=== PATIENT | male | born 1985 | race Caucasian/White ===

== ENCOUNTER 2022-10-04 08:12 | Emergency (ER) | payer OTHER, SELFPAY ==
[2022-10-04 08:15] VITALS: BP 117/77; PULSE 88; RESP 20; TEMP 36.7; O2SAT 95; BMI 28.3
--- NOTE | 2022-10-04 08:19 | ED.GENADULT ---
HPI - General Adult General Chief complaint: Dyspnea Stated complaint: diff breathing needs inhaler Time Seen by Provider: 10/04/22 08:19 Source: patient Mode of arrival: ambulatory Limitations: no limitations History of Present Illness HPI narrative: Patient is a 36 year old assigned male at with a history of asthma presenting to the emergency department today with increased wheezing. Patient states that he has a history of asthma and has been having more wheezing but does not have any of his inhaler left. Patient denies any dizziness, lightheadedness, abdominal pain, nausea, vomiting, fever, chills, blurry vision, double vision, loss of vision, chest pain, difficulty breathing, shortness of breath, back pain, night sweats, pain with urination, increased urinary frequency, increased urinary urgency, blood in his urine or stool, syncope or a near syncopal episode, recent trauma or falls, bowel incontinence, bladder incontinence, bowel retention, bladder retention, or any other complaints at this time. Onset (ago): day(s) Severity: mild Severity scale (1-10): 3 Relieving factors: none Exacerbating factors: none Associated symptoms: denies other symptoms Treatments prior to arrival: none Related Data Previous Rx's Medication Instructions Recorded albuterol sulfate 90 mcg/actuation 1 inh inhalation QID PRN shortness 10/04/22 aerosol inhaler of breath or wheezing #8.5 grams prednisone 20 mg tablet 20 mg PO DAILY 7 days #7 tabs 10/04/22 Allergies Allergy/AdvReac Type Severity Reaction Status Date / Time No Known Allergies Allergy Unverified 07/26/20 15:29 Review of Systems Constitutional: Constitutional: Reports no additional constitutional complaints, Denies chills, Denies fever(s) and Denies night sweats Eyes: Eyes: Reports no additional eye complaints, Denies blurry vision, Denies change in vision, Denies diplopia, Denies eye discharge, Denies loss of vision and Denies eye pain ENT: Denies dizziness Cardiovascular: Cardiovascular: Reports no additional cardiovascular complaints, Denies chest pain, Denies lightheadedness, Denies Loss of Consciousness and Denies dyspnea Respiratory: Respiratory: Reports no additional respiratory complaints, Denies dyspnea and Reports wheezing Gastrointestinal: Gastrointestinal: Reports no additional gastrointestinal complaints, Denies abdominal pain, Denies melena, Denies hematochezia, Denies change in bowel habits and Denies change in stool character Genitourinary: Genitourinary: Reports no additional male genitourinary complaints, Denies hematuria, Denies oliguria, Denies difficulty urinating, Denies dysuria, Denies urinary frequency, Denies urinary hesitancy, Denies urinary incontinence and Denies urinary urgency Musculoskeletal: Musculoskeletal: Reports no additional musculoskeletal complaints, Denies numbness and Denies tingling Neurologic: Denies dizziness, Denies loss of vision, Denies numbness and Denies tingling Psychiatric: Psychiatric: Reports no additional psychiatric complaints Endocrine: Endocrine: Reports no additional endocrine complaints Hematologic/Lymphatic: Hematologic/Lymphatic: Reports no additional hematologic/lymphatic complaints Allergic/Immunologic: Allergic/Immunologic: Reports no additional allergic/immunologic complaints and Reports wheezing PMFSH Past Medical History Attestation statement: The following information was validated with the patient. Source: old records reviewed Social History Social History Advance Directives: No Advance Directives Information Provided: No Physical Exam ED Vital Signs: Vital Signs - 24 hr 10/04/22 08:15 Temperature 98.1 F Pulse Rate 88 Respiratory Rate 20 Blood Pressure 117/77 Pulse Oximetry 95 Oxygen Delivery Method Room Air BMI result Body Mass Index 28.3 Const General: cooperative, no acute distress, alert and awake Nutritional Appearance: well nourished Orientation/consciousness: patient oriented x3 Limitations: no limitations HENMT Head: Yes normal to inspection and Yes atraumatic Ears: hearing grossly normal bilaterally and external ears normal General nose exam: Normal external nose present, no nasal discharge noted and no epistaxis Face and sinus: Yes normal facial exam, No abrasion and No laceration Mouth: Normal oral and palatal mucosa present, no drooling and no muffled voice Eyes General: appearance normal, both eyes and all related structures Periorbital: periorbital findings normal Eyelids: Yes eyelids normal Conjunctivae: conjunctivae normal Pupils: Equal, round and reactive pupils present EOM: EOMs intact bilaterally Neck Neck: Yes normal visual inspection, Yes full ROM and Yes no lymphadenopathy Chest Chest palpation & inspection: normal inspection of the chest Resp Effort & Inspection: normal respiratory effort and able to speak in complete sentences Auscultation: wheezes throughout Cardio Rate: regular rate Rhythm: regular rhythm GI Inspection: Yes normal to inspection Neuro General: patient oriented x3 and moves all extremities Cranial nerves: Yes Equal, round and reactive pupils present Cognition (Neuro): normal cognition Motor exam (neuro): 5/5 motor strength present throughout Sensory Exam: Normal double simultaneous stimulation for sensation Coordination: [id number] test normal Extrem General: Yes normal to inspection, Yes full ROM and Yes capillary refill normal Psych Appearance: grossly normal Mental Status: mental status grossly normal Affect: normal affect Attitude: cooperative Thought process: Normal thought process present Thought content: Normal thought content present Insight: Good insight present (Psych) Medications Administered Discontinued Medications Generic Name Dose Route Start Last Admin Trade Name Freq PRN Reason Stop Dose Admin Albuterol Sulfate 2.5 mg/ 0 mg 10/04/22 08:22 10/04/22 09:21 Albuterol/Ipratropium 3 ml INHALE 10/04/22 08:23 Not Given ONCE ONE Medical Decision Making MDM Narrative Medical decision making narrative: Patient is a 36 year old assigned male at with a history of asthma presenting to the emergency department today with wheezing. Patient's physical exam showed wheezes throughout but was otherwise unremarkable. I explained my physical exam findings to the patient. I answered all questions asked by the patient. I stressed the importance of the patient taking his medication as prescribed. I stressed the importance of the patient following up with his primary care provider. I stressed the importance of the patient returning to the emergency department immediately if his symptoms were to worsen or if he were to develop any dizziness, shortness of breath, difficulty breathing, chest pain, blurry vision, loss of vision, nausea, vomiting, abdominal pain, fever, chills, back pain, or any other complaints. Patient verbalized agreement and understanding with this treatment plan and discharge. Medical Records Medical records reviewed: Yes I reviewed the patient's medical records. Discharge Plan Discharge Clinical Impression: Asthma Patient Disposition: Home, Self-Care Instructions: Asthma (ED) Additional Instructions: Follow up with your primary care provider. Return to the emergency department immediately if your symptoms worsen or if you develop any dizziness, shortness of breath, difficulty breathing, chest pain, blurry vision, loss of vision, nausea, vomiting, abdominal pain, fever, chills, back pain, or any other complaints. Prescriptions: New albuterol sulfate 90 mcg/actuation HFA aerosol inhaler 1 inh inhalation QID PRN (Reason: shortness of breath or wheezing) Qty: 8.5 0RF prednisone 20 mg tablet 20 mg PO DAILY 7 Days Qty: 7 0RF Stand Alone Forms: Work/School Release Print Language: Nauruan
--- OUTSIDE RECORDS SUMMARY | 2022-10-04 08:32 | XMS_ITS ---
:1985 Author Care Team Providers Name Role Phone Win Combs Primary Care Provider Unavailable Allergies Code Code System Name Reaction Severity Status Onset NKDA ? Medications Name Status Start Date Stop Date ? ? albuterol sulfate HFA 90 mcg/actuation aerosol inhaler Active ? Not available amoxicillin 500 mg capsule Completed ? 10/26 bupropion HCl SR 100 mg tablet,12 hr sustained-release Completed ? 10/26/2018 bupropion HCl XL 300 mg 24 hr tablet, extended release Active ? Not available buspirone 10 mg tablet Completed ? 8 TAKE 1 TABLET (10MGS) BY MOUTH TWICE A DAY buspirone 5 mg tablet Completed ? 10/26/2018 dextroamphetamine-amphetamine 10 mg tablet Completed ? 06/21/2019 dextroamphetamine-amphetamine 20 mg tablet Active ? Not available Epclusa 400 mg-100 mg tablet Active ? Not available famotidine 40 mg tablet Active ? Not avai lable gabapentin 300 mg capsule Active ? Not av ailable hydroxyzine HCl 25 mg tablet Active ? Not available ibuprofen 800 mg tablet Active ? Not avai lable loperamide 2 mg capsule Active ? Not avai lable mirtazapine 30 mg tablet Active ? Not nory ilable nicotine (polacrilex) 2 mg gum Active ? N ot available CHEW 1 PIECE UP TO 10 TIMES A DAY NEEDED FOR NICOTINE AMY propranolol 10 mg tablet Active ? Not nory ilable Suboxone 8 mg-2 mg sublingual film Active ? Not available Vivitrol 380 mg intramuscular suspension,extended Active ? Not available release Problems Name Status Onset Date Source ? Opioid Dependence in Remission Active 10/26/2018 ? Chronic Hepatitis C Active 02/17/2019 ? Attention Deficit Hyperactivity Disorder Active 019 ? Procedures None recorded. Results Lab Results Date Name Specimen Result Interpretation Description Value Range Status Address ? 04/26/2019 CMP, Serum High Glucose 124 mg/dL 65-99 Zaynab l [facility] or Plasma mg/dL [facility]os [facility]- [place] Lab: [address] [place] ? ? Normal Urea 14 mg/dL 7-25 Final [facility] Nitrogen mg/dL Diagnost ics- (BUN) [place] Lab: [address] [place] ? ? Normal Creatinine 0.84 mg/dL 0.60-1.35 Final [facility] mg/dL Diagnostic s- [place] Lab: [address] [place] ? ? Normal eGFR 115 > or = 60 Final [facility] Non-afr. mL/min/1.7 mL/min/1. D iagnostics- [place] 3m2 73m2 [facility] Lab: [address] [place] [place] [place] ? ? Normal eGFR 133 > or = 60 Final [facility] [place] mL/min/1.7 mL/min/1. D iagnostics- 3m2 73m2 [facility]: [address] [place] ? ? ? BUN/creatini not 6-[address] ne Ratio applicable (calc) Diag nostics- (calc) [place] [facility]: [address] [place] ? ? Normal Sodium 141 mmol/L 135-146 Final Ques t mmol/L Diagnostic s- [place] Lab: [address] [place] ? ? Normal Potassium 4.1 mmol/L 3.5-5.3 Final Q uest mmol/L Diagnostic s- [place] Lab: [address] [place] ? ? Normal Chloride 104 mmol/L 98-[address] mmol/L Diagnostic s- [place] [facility]: [address] [place] ? ? Normal Carbon 28 mmol/L 20-32 Final [facility] Dioxide mmol/L Diagnosti cs- [place] Lab: [address] [place] ? ? Normal Calcium 9.3 mg/dL 8.6-10.[address] mg/dL Diagnostic s- [place] Lab: [address] [place] ? ? Normal Protein, 6.8 g/dL 6.1-8.1 Final Ques t Total g/dL [facility]: [address], [facility] ? ? Normal Albumin 4.3 g/dL 3.6-5.1 [facility] g/dL Diagnostic s- [facility] Lab: [address], [facility] ? ? Normal Globulin 2.5 g/dL 1.9-3.7 Final Ques t (calc) g/dL Diagnostic s- (calc) [facility]: [address] B, [facility] ? ? Normal Albumin/glob 1.7 (calc) 1.0-2.5 Final [facility] ulin Ratio (calc) Diagno stics- [facility] Lab: [address] B, [facility] ? ? Normal Bilirubin, 0.6 mg/dL 0.2-1.2 Final Q uest Total mg/dL Diagnostic s- [facility]: [address] B, [facility] [facility] ? ? Normal Alkaline 96 U/L 40-115 Final [facility] Phosphatase U/L [facility]: [address], [facility] ? ? Normal Ast 14 U/L 10-40 U/L Final [facility] Diagnostic s- [facility] Lab: [address], [facility] ? ? Normal Alt 13 U/L 9-46 U/L [facility]: [address] B, [place] 04/26/2019 Hepatitis C Normal HCV RNA, <15 not not Zaynab l [facility] Virus RNA, Quantitative detected detected Diagnostics- Quant, PCR, Real Time PCR IU/mL IU/mL [place] Serum or Lab: [address], [facility] ? ? Normal HCV RNA, <1.18 not not Final Ques t Quantitative detected detected Diagnostics- Real Time PCR log IU/mL log IU/mL [place] Lab: [address] B, [facility] 04/26/2019 Hepatitis C Normal HCV RNA, <15 not not Zaynab l [facility] Virus RNA, Quantitative detected detected Diagnostics- Quant, PCR, Real Time PCR IU/mL IU/mL [place] Serum or Lab: [address] ? ? Normal HCV RNA, <1.18 not not Final Ques t Quantitative detected detected Diagnostics- Real Time PCR log IU/mL log IU/mL [place] Lab: [address] 03/16/2019 CMP, Serum Normal Glucose 77 mg/dL 65-99 Final [facility] or Plasma mg/dL Diagnos tics- [facility] Lab: [address] ? ? Normal Urea 12 mg/dL 7-25 Final [facility] Nitrogen mg/dL Diagnost ics- (BUN) [facility] Lab: [address] ? ? Normal Creatinine 1.05 mg/dL 0.60-1.35 Final [facility] mg/dL Diagnostic [facility] Lab: [address] ? ? Normal eGFR 93 > or = 60 Final [facility] Non-afr. mL/min/1.7 mL/min/1. D iagnostics- [place] 3m2 73m2 [facility] Lab: [address] ? ? Normal eGFR 108 > or = 60 Final [facility] [place] mL/min/1.7 mL/min/1. D iagnostics- 3m2 73m2 [facility] Lab: [address] ? ? ? BUN/creatini not 6-[address] ne Ratio applicable (calc) Diag nostics- (calc) [facility] Lab: [address] ? ? Normal Sodium 139 mmol/L 135-146 Final Ques t mmol/L Diagnostic [facility] Lab: [address] ? ? Normal Potassium 4.5 mmol/L 3.5-5.3 Final Q uest mmol/L Diagnostic [facility] Lab: [address] [place] ? ? Normal Chloride 102 mmol/L 98-[address] mmol/L Diagnostic s- [place] [facility]: [address] [place] ? ? Normal Carbon 28 mmol/L 20-32 Final [facility] Dioxide mmol/L Diagnosti cs- [place] Lab: [address] [place], [place] ? ? Normal Calcium 9.7 mg/dL 8.6-10.[address] mg/dL Diagnostic s- [place] Lab: [address] [place], [facility] ? ? Normal Protein, 7.6 g/dL 6.1-8.1 Final Ques t Total g/dL Diagnostic [facility]- [facility] Lab: [address] [place], [facility] ? ? Normal Albumin 5.0 g/dL 3.6-5.1 Final [facility] g/dL Diagnostic s- [facility] [address] [place], [facility] ? ? Normal Globulin 2.6 g/dL 1.9-3.7 Final Ques t (calc) g/dL Diagnostic s- (calc) [facility]: [address] B, [facility] ? ? Normal Albumin/glob 1.9 (calc) 1.0-2.5 Final [facility] ulin Ratio (calc) Diagno stics- [facility] Lab: [address] [place], [place] ? ? Normal Bilirubin, 0.7 mg/dL 0.2-1.2 Final Q uest Total mg/dL Diagnostic s- [place] [facility]: [address] [place] ? ? Normal Alkaline 113 U/L 40-115 Final [facility] Phosphatase U/L Diagn ostics- [facility]: [address] [place] ? ? Normal Ast 27 U/L 10-40 U/L [facility] Diagnostic s- [place] Lab: [address] [place] ? ? High Alt 51 U/L 9-46 U/L [facility] Diagnostic s- [place] Lab: [address] [place] 03/16/2019 Hepatitis C ? Hepatitis C 3 ? Fi nal [facility] Genotype, Viral RNA Diag nostics- Serum or Genotype, [place] Plasma lipa(R) Lab: [address] [place], [place] 03/16/2019 Liver ? Fibrosis 0.19 ? Final Que st Fibrosis, Score Diagnos tics- Fibrotest [facility] Lab: [address] [place], [place] ? ? ? Fibrosis F0 ? Final [facility] Stage Diagnostic s- [place] Lab: [address] [place] ? ? ? Fibrosis see note ? Final [facility] Interpretatio [facility]- n [place] Lab: [address] [place] ? ? ? Necroinflamm 0.28 ? Final Que [facility] at Act Score Diag nostics- [place] Lab: [address] [place] ? ? ? Necroinflamm A0-A1 ? Final Que st at Act Grade Diag nostics- [place] Lab: [address] [place], [place] ? ? ? Necroinflamm see note ? Final Q uest at Interp Diagnos tics- [place] Lab: [address] [place] ? ? ? Alpha 2 207 mg/dL 106-279 Final Ques t Macroglobulin mg/dL [facility] [place] Lab: [address] [place] ? ? ? Haptoglobin 126 mg/dL 43-212 Final Q uest mg/dL Diagnostic s- [place] Lab: [address] [place] ? ? ? Apolipoprote 134 mg/dL 94-176 Final [facility] in a1 mg/dL Diagnostic s- [place] Lab: [address] [place] ? ? ? Total 0.5 mg/dL 0.2-1.2 Final [facility] Bilirubin mg/dL Diagnos [facility]ics- [place] Lab: [address] [place] ? ? ? Ggt 33 U/L 3-90 U/L Final [facility] Diagnostic s- [place] Lab: [address] [place] ? ? High Alt 53 U/L 9-46 U/L [facility] Diagnostic s- [place] Lab: [address] [place] ? ? ? Reference Id [id number] ? Final Qu est Diagnostic s- [place] Lab: [address] [place] ? ? ? Footnote see note ? Final [facility] Diagnostic s- [place] Lab: [address] [place] 03/16/2019 CBC W/ Auto Normal White Blood 7.8 3.8-10.8 Final [facility] Diff Cell Count thousand/u thousand/ Diagnostics- L uL [place] Lab: [address] [place] ? ? High Red Blood 5.90 4.20-5.80 Final [facility] st Cell Count million/uL million/u Diagnostics- L [place] Lab: [address] [place] ? ? High Hemoglobin 18.3 g/dL 13.2-17.1 Final [facility] g/dL Diagnostic s- [place] Lab: [address] [place] ? ? High Hematocrit 54.7 % 38.5-50.0 Final Qu est % Diagnostic s- [place] Lab: [address] [place] ? ? Normal Mcv 92.7 fL 80.0-100. Final [facility] 0 fL Diagnostic s- [place] Lab: [address] [place] ? ? Normal Mch 31.0 pg 27.0-33.0 Final [facility] pg Diagnostic s- [place] Lab: [address] [place] ? ? Normal Mchc 33.5 g/dL 32.0-36.0 Final Ques t g/dL Diagnostic s- [place] Lab: [address] [place] ? ? Normal Rdw 12.4 % 11.0-15.0 Final [facility] % Diagnostic s- [place] Lab: [address] [place] ? ? Normal Platelet 252 140-400 Final [facility] Count thousand/u thousand/ [facility]- L uL [place] Lab: [address] [place] ? ? Normal Mpv 10.6 fL 7.5-12.5 Final [facility] fL Diagnostic s- [place] Lab: [address] [place] ? ? Normal Absolute [id number] Final Ques t Neutrophils cells/uL cells/uL D iagnostics- [place] Lab: [address] [place] ? ? Normal Absolute [id number] Final [facility] Lymphocytes cells/uL cells/uL D iagnostics- [place] [facility]: [address] [place] ? ? Normal Absolute 632 200-950 Final [facility] Monocytes cells/uL cells/uL [facility] [place] Lab: [address] [place] ? ? Normal Absolute 117 15-500 Final [facility] Eosinophils cells/uL cells/uL D iagnostics- [place] Lab: [address] [place] ? ? Normal Absolute 47 0-200 Final [facility] Basophils cells/uL cells/uL [facility] [place] [facility]: [address] [place] ? ? Normal Neutrophils 59.3 % ? Final Ques t Diagnostic s- [place] Lab: [address] [place], [place] ? ? Normal Lymphocytes 30.5 % ? Final Ques t Diagnostic s- [place] [facility]: [address] [place] ? ? Normal Monocytes 8.1 % ? Final [facility] Diagnostic s- [place] [facility]: [address] [place] ? ? Normal Eosinophils 1.5 % ? Final Ques t Diagnostic s- [place] Lab: [address] [place], [place] ? ? Normal Basophils 0.6 % ? Final [facility]: [address] B, [place] 03/16/2019 PT/INR Normal Inr 1.0 ? Final [facility] Lab: [address] B, [place] ? ? Normal Pt 10.8 sec 9.0-11.5 Final [facility] sec Diagnostic [facility]: [address] B, [place] 03/16/2019 HBsAg Normal Hepatitis B non-reacti non-react Final [facility] (Hepatitis B Surface ve cassy [facility]- Surface Ag), Antigen [facility] Serum Lab: [address], [facility] 03/16/2019 Hepatitis B Normal Hepatitis B non-reacti non-r eact Final [facility] Core Ab, Core Ab Total ve cassy D iagnostics- Total, Serum [facility] Lab: [address], [facility] 03/16/2019 Hepatitis a Normal Hepatitis a non-reacti non-r eact Final [facility] Ab, Total, Ab, Total ve cassy [facility]- Serum [facility] Lab: [address], [facility] 03/16/2019 Hepatitis B Normal Hepatitis B 101 mIU/mL > or = 10 Final [facility] Surface Ab, Surface Ab mIU/mL D iagnostics- Quantitative Immunity, Qn [place] , Serum Lab: [address], [facility] 03/16/2019 HIV 1+2 Ab + Normal HIV Ag/Ab, non-reacti non-r eact Final [facility] HIV1 P24 Ag, 4TH Gen ve cassy [facility]- Quantitative [facility] Immunoassay, Lab: [address], [facility] 03/16/2019 Afp Normal Alpha 3.3 NG/mL <6.[address] (Alpha-fetop Fetoprotein, NG/mL Diagnostics- [facility]) Tumor Marker [facility] Tumor Lab: [address] [place], [address] Serum or [facility] B , Plasma [facility] 02/16/2019 Hepatitis C High HCV RNA, 1170 IU/mL not F inal [facility] Virus RNA, Quantitative detected Diagnostics- Quant, PCR, Real Time PCR IU/mL [place] Serum or Lab: [address] ? ? High HCV RNA, 3.07 log not Final [facility] Quantitative IU/mL detected Di agnostics- Real Time PCR log IU/mL [place] Lab: [address] 10/26/2018 Lipid Panel, Normal Cholesterol, 144 mg/dL <200 Final [facility] Serum Total mg/dL Diagnostic s- [facility] Lab: [address] ? ? Low HDL 24 mg/dL >40 mg/dL Final [facility] Cholesterol Diagn ostics- [facility] Lab: [address] ? ? High Triglyceride 243 mg/dL <150 Final [facility] s mg/dL [facility]: [address] ? ? Normal LDL-choleste 86 mg/dL ? Final Q uest rol (calc) Diagnostic [facility] Lab: [address] ? ? High Chol/hdlc 6.0 (calc) <5.0 Final Qu est Ratio (calc) Diagnostic [facility] Lab: [address] ? ? Normal Non HDL 120 mg/dL <130 Final [facility] Cholesterol (calc) mg/dL Diagn ostics- (calc) [facility] Lab: [address] 10/26/2018 CMP, Serum High Glucose 125 mg/dL 65-99 Zaynab l [facility] or Plasma mg/dL Diagnos tics- [facility] Lab: [address] ? ? Normal Urea 15 mg/dL 7-25 Final [facility] Nitrogen mg/dL Diagnost ics- (BUN) [facility] Lab: [address] ? ? Normal Creatinine 1.12 mg/dL 0.60-1.35 Final [facility] mg/dL Diagnostic s- [place] [facility]: [address] [place] ? ? Normal eGFR 86 > or = 60 Final [facility] Non-afr. mL/min/1.7 mL/min/1. D iagnostics- [place] 3m2 73m2 [facility] Lab: [address] [place] ? ? Normal eGFR 99 > or = 60 Final [facility] [place] mL/min/1.7 mL/min/1. D iagnostics- 3m2 73m2 [place] Lab: [address] [place] ? ? ? BUN/creatini not 6-[address] ne Ratio applicable (calc) Diag nostics- (calc) [place] [facility]: [address] [place] ? ? Normal Sodium 140 mmol/L 135-146 Final Ques t mmol/L Diagnostic s- [place] Lab: [address] [place], [place] ? ? Normal Potassium 4.1 mmol/L 3.5-5.3 Final Q uest mmol/L Diagnostic s- [place] Lab: [address] [place] ? ? Normal Chloride 104 mmol/L 98-[address] mmol/L Diagnostic s- [place] Lab: [address] [place] ? ? Normal Carbon 26 mmol/L 20-32 Final [facility] Dioxide mmol/L Diagnosti cs- [place] Lab: [address] [place] ? ? Normal Calcium 8.9 mg/dL 8.6-10.[address] mg/dL Diagnostic s- [place] Lab: [address] [place], [place] ? ? Normal Protein, 6.6 g/dL 6.1-8.1 Final Ques t Total g/dL Diagnostic s- [place] Lab: [address] [place], [place] ? ? Normal Albumin 4.5 g/dL 3.6-5.1 [facility] g/dL Diagnostic s- [place] Lab: [address], [facility] ? ? Normal Globulin 2.1 g/dL 1.9-3.7 Final Ques t (calc) g/dL Diagnostic s- (calc) [facility] Lab: [address] B, [facility] ? ? Normal Albumin/glob 2.1 (calc) 1.0-2.5 Final [facility] ulin [facility] (calc) [facility] Lab: [address] B, [facility] h ? ? Normal Bilirubin, 0.8 mg/dL 0.2-1.2 Final Q uest Total mg/dL Diagnostic s- [facility] Lab: [address], [facility] h ? ? Normal Alkaline 111 U/L 40-115 Final [facility] Phosphatase U/L Diagn [facility] h Lab: [address], [facility] h ? ? Normal Ast 28 U/L 10-40 U/L Final [facility]: [address], [facility] ? ? High Alt 72 U/L 9-46 U/L Final [facility] Diagnostic [facility] h Lab: [address], [facility] 10/26/2018 Hepatitis C ABNORMAL Hepatitis C reactive non-r eact Final [facility] Virus Ab, Antibody cassy Diagn [facility] Lab: [address], [facility] h ? ? High Signal to 11.70 <1.00 Final [facility] Cut-off [facility]osti [facility] Lab: [address], [facility] h ? ? High HCV RNA, 27 IU/mL not Final [facility] Quantitative detected Di agnostics- Real Time PCR IU/mL [facility] Lab: [address], [facility] h ? ? High HCV RNA, 1.43 log not Final [facility] Quantitative IU/mL detected Di agnostics- Real Time PCR log IU/mL [place] Lab: [address], [place] ? ? ? Comment ? ? Final [facility] Diagnostic s- [place] Lab: [address] [place], [place] 10/26/2018 Buprenorphin Normal Buprenorphin negative <2 NG /mL Final [facility] e, e NG/mL Diagnostic s- Quantitative [place] [facility] Lab: 200 , Urine [address], [place] ? ? Normal Medmatch consistent ? Final Que st Buprenorphine [facility] [place] Lab: [address] [place], [place] ? ? Normal Norbuprenorp negative <2 NG/mL Final [facility] georges NG/mL Diagnostic s- [place] Lab: [address] B, [facility] ? ? Normal Medmatch consistent ? Final Que st Norbuprenorph [facility]- ine [place] Lab: [address], [facility] ? ? ? Comment ? ? Final [facility] Diagnostic s- [place] Lab: [address] B, [place] 10/26/2018 Drug Screen, Normal Creatinine 204.5 > or = Fi nal [facility] Urine mg/dL 20.0 Diagnostic s- mg/dL [place] Lab: [address] B, [facility] ? ? Normal Ph 8.0 4.5-9.0 Final [facility] Diagnostic s- [place] Lab: [address] B, [place] ? ? Normal Oxidant negative <200 Final [facility] mcg/mL mcg/mL Diagnostic s- [place] Lab: [address] [place], [place] ? ? Normal Amphetamines negative <500 Final Q uest NG/mL NG/mL Diagnostic s- [place] Lab: [address] B, [place] ? ? Normal Medmatch consistent ? Final Que st Amphetamines Diag nostics- [place] Lab: [address] [place], [place] ? ? Normal Barbiturates negative <300 Final Q uest NG/mL NG/mL Diagnostic s- [place] Lab: [address] [place], [place] ? ? Normal Medmatch consistent ? Final Que st Barbiturates Diag nostics- [facility] Lab: [address] [place], [facility] ? ? Normal Benzodiazepi negative <100 Final Q uest naomi NG/mL NG/mL Diagnostic s- [place] Lab: [address] [place], [facility] ? ? Normal Medmatch consistent ? Final Que st Benzodiazepin [facility]- es [facility] Lab: [address] [place], [facility] ? ? Normal Marijuana negative <20 NG/mL Final Q uest Metabolite NG/mL Diagno [facility]- [facility] Lab: [address] [place], [facility] ? ? Normal Medmatch consistent ? Final Que st Marijuana Diagnos tics- Metab [facility] Lab: [address] [place], [facility] h ? ? Normal Cocaine negative <150 Final [facility] Metabolite NG/mL NG/mL Diagno [facility]- [facility] Lab: [address] [place], [facility] ? ? Normal Medmatch consistent ? Final Que st Cocaine Metab [facility]- [facility] Lab: [address], [facility] h ? ? Normal Methadone negative <100 Final Ques t Metabolite NG/mL NG/mL Diagno [facility]- [facility] Lab: [address] [place], [facility] ? ? Normal Medmatch consistent ? Final Que st Methadone Diagnos tics- [facility] Lab: [address] [place], [facility] ? ? Normal Opiates negative <100 Final [facility] NG/mL NG/mL Diagnostic s- [place] Lab: [address], [facility] ? ? Normal Medmatch consistent ? Final Que st Opiates Diagnosti cs- [place] Lab: [address] [place], [facility] ? ? Normal Oxycodone negative <100 Final Ques t NG/mL NG/mL Diagnostic s- [place] Lab: [address] [place], [place] ? ? Normal Medmatch consistent ? Final [facility]- [place] [facility]: [address], [facility] ? ? ? Comment ? ? [facility] [place] [facility]: [address], [facility] ? ? Normal Alcohol negative <500 Final [facility] Metabolites NG/mL NG/mL [facility]: [address] [place], [place] ? ? Normal Medmatch consistent ? Final Que st [facility] Metab [facility]: [address], [facility] ? ? ? Comment ? ? [facility] [place] [facility]: [address], [facility] ? ? Normal 6 negative <10 NG/mL [facility] Acetylmorphin NG/mL [facility]: [address], [facility] ? ? Normal Medmatch 6 consistent ? Final Q uest Acetylmorphin [facility]- [facility]: [address], [facility] ? ? ? Comment ? ? [facility] [place] [facility]: [address] [place], [place] 10/26/2018 Drug Normal Fentanyl negative <0.5 Final Q uest Monitor, NG/mL NG/mL [facility]ost [facility]- [place], [place]conf, Lab: [address], [facility] ? ? ? Comment ? ? [facility] [place] [facility]: [address], [facility] Past Encounters None recorded. Social History Tobacco Smoking Status Current Every Day Smoker Notes: 5 d aily Vaccine List Vaccine Type Hep A, adult 03/29/2019?0.5 mL Plan of Care Reminders Provider Appointments None recorded. ? ? Lab None recorded. ? ? Referral None recorded. ? ? Procedures None recorded. ? ? Surgeries None recorded. ? ? Imaging None recorded. ? ? Vitals 02/16/2019 02:15PM Do Not Use Medical Height Weight BMI Blood Pressure 5 ft 5.5 in 183 lbs 2 oz 30 kg/m2 117/78 mm[Hg] 11/16/2018 03:00PM Physical Exam Height Weight BMI Blood Pressure 5 ft 5.5 in 189 lbs 2 oz 31 kg/m2 128/80 mm[Hg] 10/26/2018 02:15PM New Patient Height Weight BMI Blood Pressure 5 ft 5.5 in 184 lbs 4 oz 30.2 kg/m2 115/80 mm[Hg]
== END 2022-10-04 09:15 | disposition home or self-care (01) ==
PROVIDERS: Emergency Provider Emergency Medicine; PCP Internal Medicine
DX: J45.909 Unspecified asthma, uncomplicated (principal)
CPT/HCPCS: 99281; 99283

== ENCOUNTER 2023-05-27 22:53 | Emergency (ER) | payer OTHER, SELFPAY ==
[2023-05-27 22:57] VITALS: BP 110/67; PULSE 101; RESP 18; TEMP 36.3; O2SAT 96; BMI 28.3
[2023-05-28 00:45] VITALS: BP 106/67; PULSE 82; RESP 17; TEMP 36.6; O2SAT 94
--- NOTE | 2023-05-28 01:24 | PC.NURSE ---
patient is in bed being seen by the doctor patient vitals were stable at this time patent showing no distress patient family is at the bedside patient will continue to be monitored for safety.
--- NOTE | 2023-05-28 01:27 | ED.EXTPRO ---
HPI - Extremity Problem General Chief complaint: Extremity Problem Stated complaint: R arm infection Time Seen by Provider: 05/28/23 01:16 Source: patient Mode of arrival: ambulatory Limitations: no limitations History of Present Illness HPI Narrative: Patient comes to the emergency room complaining of right forearm abscess/cellulitis. Patient states it started approximately 24 hours ago. Patient admits to IV drug use. Complaining of subjective fever and chills. Related Data Previous Rx's Medication Instructions Recorded albuterol sulfate 90 mcg/actuation 1 inh inhalation QID PRN shortness 10/04/22 aerosol inhaler of breath or wheezing #8.5 grams prednisone 20 mg tablet 20 mg PO DAILY 7 days #7 tabs 10/04/22 cephalexin 500 mg capsule 500 mg PO BID #14 caps 05/28/23 doxycycline hyclate 100 mg capsule 100 mg PO BID #14 caps 05/28/23 Allergies Allergy/AdvReac Type Severity Reaction Status Date / Time No Known Allergies Allergy Unverified 07/26/20 15:29 Review of Systems Review of Systems: Constitutional : No Weight loss, No Fever, No Chills, No Night Sweats, No Fatigue, No Malaise ENT/Mouth : No Hearing loss, No Ear Pain, No Nasal Congestion, No Sinus Pain, No Hoarseness, No sore throat, No Rhinorrhea, No Swallowing Difficulty Eyes: No Eye Pain, No Swelling, No Redness, No Foreign Body, No Discharge, No Vision Changes Cardiovascular : No Chest Pain, No SOB, No Dyspnea on Exertion, No Orthopnea, No Edema, No Palpitations Respiratory : No Cough, No Sputum, No Wheezing, No Smoke Exposure, No Dyspnea Gastrointestinal : No Nausea, No Vomiting, No Diarrhea, No Constipation, No abdominal Pain, No Hematochezia, No Melena Genitourinary : no irregular bleeding, No Dysuria, No Urinary Frequency, No Hematuria, No Urinary Incontinence, No Urgency, No Flank Pain, No Urinary Flow Changes, No Hesitancy Musculoskeletal : No joint pain, No Myalgias, No Joint Swelling Skin : Complaining of heavy lightest an abscess in the right forearm Neuro : No Weakness, No Numbness, No Paresthesias, No Loss of Consciousness, No Dizziness, No Headache Psych : No Anxiety/Panic, No Depression, No SI/HI/AH/VH, No Social Issues, Heme/Lymph: No Bruising, No Bleeding,No Lymphadenopathy Endocrine : No Polyuria, No Polydipsia, No Temperature Intolerance [facility] Past Medical History Medical History IV drug user Social History Social History Alcohol intake: never Smoked in Last 30 Days: No Advance Directives: No Advance Directives Information Provided: Yes Physical Exam Vital Signs: Vital Signs: Last Vital Signs Temp 97.8 F 05/28/23 00:45 Pulse 82 05/28/23 00:45 Resp 17 05/28/23 00:45 BP 106/67 05/28/23 00:45 Pulse Ox 94 05/28/23 00:45 O2 Del Method Room Air 05/28/23 00:45 BMI result Body Mass Index 28.3 Const: Other: Appearance: Alert. Oriented X3. No acute distress. Eyes: Pupils equal, round and reactive to light. ENT: Pharynx normal. Neck: Normal inspection. Neck supple. No lymph nodes noted. No crepitus CVS: Normal heart rate and rhythm. Pulses normal. Normal S1 and S2 Respiratory: No respiratory distress. Breath sounds normal. No Wheezing. No rales Abdomen: Soft and nontender. No rigidity. No distention. Skin: Skin warm and dry. See extremity below Extremities: No lower extremity edema. No Lacerations. No Rash. The right 1 is erythematous left forearm, on bedside ultrasound, there is a 2 cm abscess approximately 0.5 cm below the skin. The surrounding skin approximately a cm radius is erythematous. Neuro: Oriented X 3. No motor deficit. No sensory deficit. Moving all extremities. No slurred speech. CN 2 through 12 grossly intact Psych: calm, cooperative, normal affect Course Course Course Narrative: -I discussed the physical exam with the patient, the abscess needs to be drained and packed -patient will need antibiotics, patient reports no allergies -labs pending Medical Decision Making Medical Decision Making MDM Narrative: -patient's arm was drained, packed with iodoform. Tolerated well the procedure -white blood cell count is elevated 14.5, lactic acid normal, not tachycardic, heart rate 82, no fever. Admission was considered and offered to the patient. Patient would like to be discharged home but agrees that if the erythema or swelling worsens, any new symptoms, fever chill, he will return to the emergency room. Patient is aware he will need to return in 48 hours for a wound check and packing removal. -patient was given the 1st dose of antibiotics, Keflex and doxycycline -patient's sodium is a bit low, 131. However, patient is completely asymptomatic. -patient given p.o. oxycodone Differential Diagnosis Differential Diagnoses: The differential diagnosis associated with the presentation includes (Cellulitis, abscess) Admission/Observation Consideration of admission/observation: Escalation of care including admission/observation considered Lab Data MDM Lab Attestation statement: I reviewed the patient's lab results. 05/28/23 01:48 05/28/23 01:48 Procedures Abscess I/D Site: upper extremity Side (if applicable): right Local Anesthetic: lidocaine 1% Amount of anesthesia used (mL): 10 Technique: incised with blade and ultrasound guided Amount of fluid expressed (mL): 20 Sent for culture/gram staining?: No Irrigation: Yes Packing used?: iodoform Critical Care Time Critical Care Time Critical Care Time: Yes Total Critical Care Time: 45 Attestation: I have personally provided critical care time. Time includes review of lab data, radiology results, discussion with consultants, and monitoring for potential decompensation. Intervention performed as documented. Discharge Plan Discharge Clinical Impression: Abscess, Cellulitis Patient Disposition: Home, Self-Care Instructions: Abscess (ED) Additional Instructions: You need to return in 48 hours for wound check and packing removal. If you develop over the next 48 hours fever, chills, worsening symptoms or new symptoms, please return to the emergency room. Please follow-up with your primary care physician tomorrow. If you have any worsening or new symptoms, please return to the emergency room or call 911 Prescriptions: New doxycycline hyclate 100 mg capsule 100 mg PO BID Qty: 14 0RF cephalexin 500 mg capsule 500 mg PO BID Qty: 14 0RF No Action albuterol sulfate 90 mcg/actuation HFA aerosol inhaler 1 inh inhalation QID PRN (Reason: shortness of breath or wheezing) Qty: 8.5 0RF prednisone 20 mg tablet 20 mg PO DAILY 7 Days Qty: 7 0RF
[2023-05-28 01:56] LABS: Basophils Percent Auto 0.2 % (0-2); Hematocrit 39.3 % (42.0-52.0); Mean Platelet Volume 10.6 fL (9.4-12.4); PLT CLUMP 1; SCAN SMEAR FLAG 1
[2023-05-28 01:58] LABS: Hemoglobin 13.6 g/dl (14.0-18.0); Imm Gran Abs Auto 0.05 X10*3/uL (0.00-0.03); Imm Gran Pct Auto 0.3 % (0.0-0.4); Lymphocytes Absolute Auto 1.3 X10*3/uL (1.2-4.9); Lymphocytes Percent Auto 9.2 % (20-40); MANUAL DIFF FLAG SCAN; Mean Corpuscular HGB Conc 34.6 g/dl (31.0-36.0); Mean Corpuscular Volume 83.8 fL (80.0-98.0); Monocytes Absolute Auto 1.1 X10*3/uL (0.1-1.2); Monocytes Percent Auto 7.5 % (2-11); Neutrophils Percent Auto 82.8 % (45-73); Red Blood Count 4.69 X10*6/uL (4.60-5.80)
[2023-05-28 02:05] LABS: Lactic Acid 0.9 mmol/L (0.5-2.0)
[2023-05-28] MEDS: oxyCODONE HCl Immed Release 5 MG TABLET PO (02:06)
--- NOTE | 2023-05-28 02:06 | PC.NURSE ---
patient in bed with eyes open patient was medicated with no issues patient family at the bed side while doctor perform the procedure on the infected right arm
[2023-05-28 02:08] LABS: Anion Gap 12 (12-20); Blood Urea Nitrogen 20 mg/dL (9-16); Calcium 9.1 mg/dL (8.4-10.2); Carbon Dioxide 23 mmol/L (22-29); Chloride 100 mmol/L (96-108); Creatinine Clr Calc Pharmacy 115.3; Estimated Glomerular Filt Rate > 60; Glucose Random 157 mg/dL (60-115); Potassium 4.1 mmol/L (3.3-5.1); Sodium 131 mmol/L (135-145)
[2023-05-28 02:14] LABS: White Blood Count 14.5 X10*3/uL (4.8-10.8)
[2023-05-28 02:15] LABS: SLIDE REVIEW VERIFIED
[2023-05-28] MEDS: cephALEXin 500 MG CAPSULE PO (02:35)
[2023-05-28] MEDS: Doxycycline Monohydrate 100 MG CAPSULE PO (02:35)
== END 2023-05-28 02:44 | disposition home or self-care (01) ==
PROVIDERS: Emergency Provider Emergency Medicine; PCP Internal Medicine
DX: L02.413 Cutaneous abscess of right upper limb (principal); L03.113 Cellulitis of right upper limb; F19.90 Other psychoactive substance use, unspecified, uncomplicated; F17.210 Nicotine dependence, cigarettes, uncomplicated
CPT/HCPCS: 10060; 36415; 80048; 83605; 85025; 87040; 99284

== ENCOUNTER 2023-05-29 17:36 | Inpatient (IN) | payer OTHER, SELFPAY ==
--- NOTE | ~2023-05-29 | CT_ITS ---
EXAMINATION: CT FOREARM WITH CONTRAST, RIGHT CLINICAL INFORMATION: Evaluate for persistent abscess COMPARISON: None available. TECHNIQUE: 85 mL Omnipaque 350 intravenous contrast was utilized. Multidetector helical imaging was performed through the right forearm. Coronal and sagittal reformatted images were created. This CT examination was performed using dose optimization techniques as appropriate, variously including the following: *Automated exposure control *Adjustment of mA and/or kV according to patient size (this includes techniques or standardized protocols for targeted exams where dose is matched to indication/reason for exam; i.e. extremities or head) *Use of iterative reconstruction technique DLP: 157 mGy-cm FINDINGS: There is a intramuscular collection in the dorsal proximal to mid forearm measuring approximately 5.7 cm in length and 1.4 x 0.7 cm in cross-sectional dimension. An additional, smaller fluid collection is present in the dorsal mid to distal forearm musculature measuring 2.9 cm in length and 0.9 x 0.4 cm in cross-sectional dimension, containing trace gas. There is additional fluid and foci of gas along the dorsal musculature of the distal forearm without definite collection at this location. There is subcutaneous edema along the length of the forearm dorsally as well as at the elbow. Vasculature appears normally enhancing. No focal osseous abnormality is seen. Articular alignment appears anatomic. CT/CT forearm RT w IV con IMPRESSION: 1. Two fluid collections in the dorsal forearm musculature as described above, one of which contains trace gas. Appearance is consistent with abscesses. 2. Additional fluid and foci of gas along the dorsal musculature of the distal forearm without definite collection at this location. 3. Subcutaneous edema along the length of the forearm dorsally as well as at the elbow.
[2023-05-29 18:41] VITALS: BP 116/70; PULSE 61; RESP 16; TEMP 36.3; O2SAT 99; BMI 28.3
--- NOTE | 2023-05-29 18:41 | ED.GENADULT ---
HPI - General Adult General Chief complaint: Wound/Laceration Stated complaint: Dressing needs to be removed Time Seen by Provider: 05/29/23 22:24 Source: patient, RN notes reviewed and old records reviewed Mode of arrival: ambulatory Limitations: no limitations History of Present Illness HPI narrative: 37-year-old male presents for evaluation of ?packing removal. Patient was seen here just under 48 hours ago for an abscess to his right forearm. He admits to IV drug abuse which is the source of the abscess. 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 He was discharged with doxycycline and cephalexin after being offered admission She continues to have pain and now the redness is extending up his right upper arm Denies any fevers or chills Related Data Previous Rx's Medication Instructions Recorded albuterol sulfate 90 mcg/actuation 1 inh inhalation QID PRN shortness 10/04/22 aerosol inhaler of breath or wheezing #8.5 grams prednisone 20 mg tablet 20 mg PO DAILY 7 days #7 tabs 10/04/22 cephalexin 500 mg capsule 500 mg PO BID #14 caps 05/28/23 doxycycline hyclate 100 mg capsule 100 mg PO BID #14 caps 05/28/23 ibuprofen 600 mg tablet 600 mg PO TID PRN fever or pain 05/28/23 #20 tabs oxycodone 5 mg tablet 5 mg PO Q8H PRN pain #6 tabs 05/28/23 Allergies Allergy/AdvReac Type Severity Reaction Status Date / Time No Known Allergies Allergy Verified 05/29/23 18:43 Review of Systems Constitutional: Constitutional: Denies chills and Denies fever(s) Musculoskeletal: Comments: Right forearm pain and swelling Integumentary/Breasts: Skin/Breast: Reports erythema and Reports wounds PMFSH Past Medical History Medical History IV drug user Social History Social History Alcohol intake: never Advance Directives: No Advance Directives Information Provided: No Physical Exam ED Vital Signs: Vital Signs - 24 hr 05/29/23 18:41 05/29/23 20:12 05/29/23 22:58 Temperature 97.4 F 98.1 F 99.2 F Pulse Rate 61 66 77 Respiratory Rate 16 16 16 Blood Pressure 116/70 118/72 133/75 Pulse Oximetry 99 99 98 Oxygen Delivery Method Room Air Room Air Room Air BMI result Body Mass Index 28.3 Const General: comfortable, no acute distress, alert and awake Nutritional Appearance: well nourished Orientation/consciousness: patient oriented x3 HENMT Head: Yes normocephalic and Yes atraumatic Eyes Eyelids: Yes eyelids normal Conjunctivae: conjunctivae normal Sclerae: sclerae normal Corneas: corneas normal Pupils: Equal, round and reactive pupils present EOM: EOMs intact bilaterally Neck Neck: Yes full ROM Resp Effort & Inspection: normal respiratory effort, able to speak in complete sentences and not labored Cardio Rate: regular rate Rhythm: regular rhythm Skin Other: Patient has a previously incised abscess to the right distal forearm on the dorsal surface. There is iodoform packing still in the wound. Packing was removed and there is a significant amount of yellowish purulent drainage from the wound. The patient still has fluctuance extending proximally up the arm with erythema extending group home up the right upper arm. General skin exam: elasticity normal Neuro General: patient oriented x3 Cranial nerves: Yes CN's II-XII intact bilaterally, Yes Equal, round and reactive pupils present and Yes Bilaterally intact EOM present Cognition (Neuro): normal cognition Extrem Other: Patient has good range of motion with flexion, extension, pronation supination of the right forearm. Course Course Course Narrative: RME performed by Kamille Dobbs PA-C. Patient is a 37 year old assigned male at presenting to the emergency department requesting packing removal. Patient was seen early in the morning on 05/28/2023 and had an abscess incised / drained with packing placed. Patient placed back in the waiting room pending room availability. Medical Decision Making Medical Decision Making MDM Narrative: Is patient presents for evaluation of packing removal and re-evaluation. His cellulitis appears to be worsening and still has significant pain unchanged. At this point the patient has failed oral antibiotics. Will discuss with hospitalist for admission. Labs including blood cultures and a lactic ordered. Patient was given vancomycin and ceftriaxone to treat the cellulitis/abscess. Differential Diagnosis Abscess Cellulitis Septic joint less likely Sepsis Extremity IV drug abuse Admission/Observation Consideration of admission/observation: Escalation of care including admission/observation considered Worsening abscess/cellulitis despite adequate oral antibiotics. Patient will be admitted for IV antibiotics Discharge Plan Discharge Clinical Impression: Abscess of forearm, right, Cellulitis Patient Disposition: Admitted As Inpatient
[2023-05-29 20:12] VITALS: BP 118/72; PULSE 66; RESP 16; TEMP 36.7; O2SAT 99
--- NOTE | 2023-05-29 20:13 | PC.NURSE ---
patient a&ox3, vss, pt awaiting provider for packing removal, call leiva within reach, will continue to monitor.
--- NOTE | 2023-05-29 22:34 | ECG_ITS ---
Test Reason : LAC Blood Pressure : / mmHG Vent. Rate : 080 BPM Atrial Rate : 080 BPM P-R Int : 136 ms QRS Dur : 080 ms QT Int : 414 ms P-R-T Axes : 078 062 062 degrees QTc Int : 477 ms Normal sinus rhythm Possible Left atrial enlargement Borderline ECG When compared with ECG of 19-APR-2018 17:55, QT has lengthened Referred By: Zander ePrla Electronically Signed By:Valeriy Merlos
--- NOTE | 2023-05-29 22:43 | PM.IMHP ---
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 Patient states he 1st noticed 4 days prior to presentation. It has been progressively worsening. He was seen in the ER 48 hours ago and underwent I&D of the abscess. Patient was discharged on p.o. antibiotics. He states that his arm got progressively worse in terms of redness and warmth. He also has been having fevers and chills. Patient denies similar infection in the past. No chest discomfort, palpitations, shortness of breath, abdominal pain, changes in urinary or bowel habits. He is on methadone for opioid use disorder. His last IV use was about a week ago In the emergency department, imaging with abscesses in the dorsal forearm Review of Systems Constitutional: Constitutional: Reports chills and Reports fever(s) Cardiovascular: Cardiovascular: Reports no additional cardiovascular complaints Respiratory: Respiratory: Reports no additional respiratory complaints Gastrointestinal: Gastrointestinal: Reports no additional gastrointestinal complaints Genitourinary: Genitourinary: Reports no additional male genitourinary complaints [facility] Medical History IV drug user Pertinent family history: No family history of early CAD Social History Household Members: Significant Other Housing: Condominium Do you presently have visiting nurse or other home services: No Alcohol intake: never Patient Tobacco Use Status: Current everyday Tobacco user Tobacco use type: Cigarette Cigarettes Per Day: 10 Smoked in Last 30 Days: Yes Patient Interested in Nicotine Replacement: Yes Patient Given Instructions on How to Stop Smoking: No Second Hand Smoke Exposure: Yes Use of substances other than those prescribed or required for medical reasons: Yes Substance Use Type: Crack/Cocaine, Heroin and Marijuana Substance Use Frequency: Occasionally Last Used Substance: Weeks (ago) Last Used Substance Other:: 1 week ago Currently Displaying Signs/Symptoms of Drug Intoxication Withdrawal: No Any prior treatment program specific to substance use: No Have you been hit, kicked, punched, or otherwise hurt by someone within the past year? If so, by whom?: No Do you feel safe in your current relationship?: Yes Is there a partner from a previous relationship who is making you feel unsafe now?: No Are you made to feel afraid or neglected: No Advance Directives: No Advance Directives Information Provided: No Do you have thoughts of harming others: None Do you have a plan to hurt others: No Plan Recently lost weight without trying: Yes How much weight loss: Unsure Eating poorly because of decreased appetite: Yes Nutrition screen score: 5 Nutrition Risks: No Nutritional Risk Poor oral hygiene: No Meds Allergies Allergy/AdvReac Type Severity Reaction Status Date / Time No Known Allergies Allergy Verified 05/29/23 18:43 Active Medications: Current Medications Vancomycin HCl 1,500 mg/ (Sodium Chloride) 500 mls @ 333.333 mls/hr IV ONCE ONE Stop: 05/30/23 00:02 Ceftriaxone Sodium 1 gm/ (Sodium Chloride) 50 mls @ 100 mls/hr IV ONCE ONE Stop: 05/29/23 23:02 Sodium Chloride (Ns) 1,000 mls @ 999 mls/hr IV .Q1H1M KAY Stop: 05/29/23 23:45 Physical Exam Vital Signs and Narrative: Vital Signs: Last Vital Signs Temp 98.1 F 05/29/23 20:12 Pulse 66 05/29/23 20:12 Resp 16 05/29/23 20:12 BP 118/72 05/29/23 20:12 Pulse Ox 99 05/29/23 20:12 O2 Del Method Room Air 05/29/23 20:12 BMI result Body Mass Index 28.3 Middle-aged male lying in bed in no distress Neck supple, no JVD Regular rate and rhythm, S1-S2 heard Regular breath sounds bilaterally, no wheezing or crackles appreciated Abdomen soft nontender, no guarding, no rigidity Patient is awake, alert and oriented to self, place, time and person ; no focal motor deficit Extremity: Right upper extremity with erythema, warmth and tenderness, fluctuance present Psych: Normal mood No pedal edema Results Labs 05/29/23 23:34 05/29/23 23:34 Assessment and Plan (1) Cellulitis: Status: Acute (2) Abscess of forearm, right: Status: Acute Plan This is a 37-year-old male with 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 #. Right forearm abscesses with cellulitis. Will admit patient and initiate empiric IV antibiotics. Consulting general surgery, appreciate assistance. Blood culture pending #. IV opioid use disorder. On methadone. Consulting addiction team. Monitor for withdrawals. UDS pending Med rec pending DVT prophylaxis: Mechanical Full code Regular diet Admit as inpatient and will require two night minimum hospital stay for IV antibiotics Time Spent With Patient Time: Total time managing care of this patient today ____ minutes. Quality Stroke Does the patient have a stroke diagnosis?: No VTE Prior VTE?: No VTE Risk Level:: Medical - moderate - high VTE Device Contraindication: Treatment Not Indicated VTE Drug Contraindication: N/A - Med Ordered
[2023-05-29 22:58] VITALS: BP 133/75; PULSE 77; RESP 16; TEMP 37.3; O2SAT 98
--- NOTE | 2023-05-29 23:11 | PC.NURSE ---
pt transferred to ED 20 report given to Elizabeth BARAJAS- of note pt does take methadone 105mg rec from [facility]- for dose verification
[2023-05-29 23:53] LABS: MANUAL DIFF FLAG NO
[2023-05-29 23:55] LABS: Basophils Percent Auto 0.4 % (0-2); Eosinophils Percent Auto 0.1 % (0-4); Hematocrit 40.5 % (42.0-52.0); Hemoglobin 13.9 g/dl (14.0-18.0); Imm Gran Abs Auto 0.05 X10*3/uL (0.00-0.03); Imm Gran Pct Auto 0.6 % (0.0-0.4); Lymphocytes Absolute Auto 1.7 X10*3/uL (1.2-4.9); Lymphocytes Percent Auto 20.1 % (20-40); Mean Corpuscular HGB Conc 34.3 g/dl (31.0-36.0); Mean Corpuscular Hemoglobin 28.7 pg (27.0-33.0); Mean Corpuscular Volume 83.7 fL (80.0-98.0); Mean Platelet Volume 10.1 fL (9.4-12.4); Monocytes Absolute Auto 1.1 X10*3/uL (0.1-1.2); Monocytes Percent Auto 12.3 % (2-11); Neutrophils Absolute Auto 5.7 x10*3/uL (2.0-8.3); Neutrophils Percent Auto 66.5 % (45-73); Platelet Count 189 X10*3/uL (160-400); Red Blood Count 4.84 X10*6/uL (4.60-5.80); Red Cell Distribution Width 12.1 % (11.0-16.0); White Blood Count 8.6 X10*3/uL (4.8-10.8)
[2023-05-30] VITALS (7 sets, daily range): BP systolic 114–157; BP diastolic 55–86; PULSE 65–114; RESP 15–18; TEMP 36.6–37.2; O2SAT 96–98; BMI 26.9
[2023-05-30 00:08] LABS: INTERNATIONAL NORM RATIO 1.2 (0.9-1.1)
[2023-05-30 00:08] LABS: Lactic Acid 0.8 mmol/L (0.5-2.0)
[2023-05-30 00:12] LABS: Alanine Aminotransferase 18 U/L (0-40); Albumin Level 3.8 g/dL (3.5-5.0); Alkaline Phosphatase 127 U/L (39-117); Anion Gap 14 (12-20); Aspartate Amino Transferase 13 U/L (5-37); Bilirubin Total 0.7 mg/dL (0.0-1.0); Blood Urea Nitrogen 13 mg/dL (9-16); C Reactive Protein 18.97 mg/dL (< or = 0.50); Calcium 9.3 mg/dL (8.4-10.2); Carbon Dioxide 27 mmol/L (22-29); Chloride 99 mmol/L (96-108); Creatinine Clr Calc Pharmacy 129.2; Estimated Glomerular Filt Rate > 60; Glucose Random 92 mg/dL (60-115); Potassium 3.6 mmol/L (3.3-5.1); Sodium 136 mmol/L (135-145); Total Protein 7.1 g/dL (6.5-8.0)
[2023-05-30 00:29] LABS: Erythrocyte Sedimentation Rate 28 MM/HR (0-15)
[2023-05-30] MEDS: iohexoL 350 MG/ML 100 ML INFUS..BTL 85 ML IV (00:36)
[2023-05-30] MEDS: cefTRIAXone sodium 1 GM in 0.9 % Sodium Chloride 50 ML IV ×2 (00:40→21:55)
[2023-05-30] MEDS: 0.9 % Sodium Chloride 1,000 ML 999 ML IV (00:41)
[2023-05-30] MEDS: Enoxaparin Sodium 40 MG/0.4 ML SYRINGE SUBCUT (00:45)
[2023-05-30] MEDS: Melatonin 3 MG TABLET 6 MG PO (00:45)
[2023-05-30] MEDS: 0.9 % Sodium Chloride Flush 3 ML SYRINGE IVFLUSH ×4 (02:00→22:03)
[2023-05-30] MEDS: Acetaminophen 325 MG TABLET 650 MG PO ×3 (03:00→23:11)
[2023-05-30] MEDS: vancomycin HCL 1,000 MG, vancomycin HCL 750 MG in 0.9 % Sodium Chloride 500 ML 267.5 MG IV (04:35)
[2023-05-30 07:34] LABS: MANUAL DIFF FLAG NO
--- NOTE | 2023-05-30 07:45 | PHA.PROG ---
Admission Date/Time: May 29, 2023 22:42 Indication: Weight in k.4 kg Adjusted body weight in Kg: Cash body weight in Kg: Obesity Dosing Indication % IBW: Serum Creatinine - Last 168 Hours 05/29/23 23:34 Creatinine 0.75 Estimated CrCl and GFR - Last 168 Hours 05/29/23 23:34 Estim Creat Clear Calc 129.2 Estimated GFR > 60 Vancomycin Loading Dose: 1000 MG Current Vancomycin Dosing Regimen: 1250 MG Q12 Vancomycin Monitoring using AUC goal of 400 - 600 range with trough as surrogate marker: EXPECTED AUC 489 WITH TROUGH 14 Date and Time for next Vancomycin Level to be drawn: 05/31 @1600 Pharmacist Comments on Vancomycin Plan: APPROPRIATE LOADING DOSE WAS ENTERED BY PHARMACY AND CANCELED BY PROVIDER/REPLACED WITH 1000 MG ONE TIME DOSE OVERNIGHT. LOAD WAS ALREADY INFUSED BY THE TIME IN HOUSE PHARMACY ARRIVED. WILL START DOSING AT 1250 MG Q12 AND REASSESS AFTER 3 DOSES TO SEE IF DOSING IS APPROPRIATE AND PATIENT TROUGH IS WITHIN RANGE. Vancomycin dosing will take advantage of [employer] as a clinical decision support tool that uses Bayesian modeling to calculate individual patient's pharmacokinetic parameters and forecast the patient's drug concentration time course with the target goal AUC 24 range of 400 - 600 mg/L/hr.
[2023-05-30 07:46] LABS: Basophils Percent Auto 0.4 % (0-2); Eosinophils Percent Auto 0.1 % (0-4); Hematocrit 40.3 % (42.0-52.0); Hemoglobin 13.7 g/dl (14.0-18.0); Imm Gran Abs Auto 0.04 X10*3/uL (0.00-0.03); Imm Gran Pct Auto 0.5 % (0.0-0.4); Lymphocytes Absolute Auto 1.9 X10*3/uL (1.2-4.9); Lymphocytes Percent Auto 24.2 % (20-40); Mean Corpuscular Volume 85.2 fL (80.0-98.0); Mean Platelet Volume 10.6 fL (9.4-12.4); Monocytes Percent Auto 12.2 % (2-11); Neutrophils Percent Auto 62.6 % (45-73); Platelet Count 166 X10*3/uL (160-400); Red Blood Count 4.73 X10*6/uL (4.60-5.80); Red Cell Distribution Width 12.1 % (11.0-16.0)
[2023-05-30 07:53] LABS: Anion Gap 13 (12-20); Blood Urea Nitrogen 9 mg/dL (9-16); Calcium 8.9 mg/dL (8.4-10.2); Carbon Dioxide 26 mmol/L (22-29); Chloride 106 mmol/L (96-108); Creatinine Clr Calc Pharmacy 133.3; Estimated Glomerular Filt Rate > 60; Glucose Random 77 mg/dL (60-115); Sodium 141 mmol/L (135-145)
[2023-05-30 07:55] LABS: Creatinine Clr Calc Pharmacy 131.3; Estimated Glomerular Filt Rate > 60
--- NOTE | 2023-05-30 08:29 | PHA.MEDREC ---
Pharmacy Consult ? Medication Reconciliation Pharmacy has completed the medication reconciliation. spoke with patient and confirmed medications. Patient says he gets 105mg methadone from [facility] and last recieved it yesterday.
--- NOTE | 2023-05-30 08:51 | HE.PHANOTE ---
Addendum entered by Ping Brown [facility] 05/30/23 13:35: Spoke to Elvi (recovery nurse) and she called methadone clinic again to verify patient was given take home bottles. Last dose was actually 105 mg on 05/28/23. Will reach out to provider to get one time dose of 50 mg for today and correct order entered for tomorrow. Addendum entered by Dorina Rosenberg [facility] 05/30/23 08:59: Spoke to Dr. Chacon, due to patient having missed 4 doses (05/26-05/29) agreed to reduce dose by 50%. Put in telephone order for 55mg daily per provider Original Note: RE: methadone Received methadone verification form from [facility]; last dose 05/25/23 @ 0837 for 105mg
[2023-05-30] MEDS: methADONE HCl 20 MG/2 ML ORAL.CONC 55 MG PO (09:16)
--- NOTE | 2023-05-30 09:24 | HO.PM.IMPN ---
Subjective Subjective Date of Service: 05/30/23 Interval History: f/u on abscess of the arm in drug use patient Physical Exam Vital Signs: Vital Signs: Last Vital Signs Temp 98 F 05/30/23 07:17 Pulse 78 05/30/23 07:17 Resp 18 05/30/23 07:17 BP 119/71 05/30/23 07:17 Pulse Ox 97 05/30/23 07:17 O2 Del Method Room Air 05/30/23 07:17 BMI result Body Mass Index 26.9 Const: Other: Middle-aged male lying in bed in no distress Neck supple, no JVD Regular rate and rhythm, S1-S2 heard Regular breath sounds bilaterally, no wheezing or crackles appreciated Abdomen soft nontender, no guarding, no rigidity Patient is awake, alert and oriented to self, place, time and person ; no focal motor deficit Extremity: Right upper extremity with erythema, warmth and tenderness, fluctuance present Psych: Normal mood No pedal edema Objective Data Active Medications Acetaminophen (Acetaminophen 325 Mg Tablet) 650 mg PO Q6H PRN PRN Reason: Pain, Mild (Pain Scale 1-3) Last Admin: 05/30/23 03:00 Dose: 650 mg Documented By: TATE Ceftriaxone Sodium 1 gm/ (Sodium Chloride) 50 mls @ 100 mls/hr IV Q24H [facility] Vancomycin HCl 1,250 mg/ (Sodium Chloride) 250 mls @ 166.667 mls/hr IV Q12H [facility] Melatonin (Melatonin 3 Mg Tablet) 6 mg PO BEDTIME PRN PRN Reason: Insomnia Last Admin: 05/30/23 00:45 Dose: 6 mg Documented By: LIUDMILA Methadone HCl (Methadone Hcl 20 Mg/2 Ml Oral.Conc) 55 mg PO DAILY [facility] Last Admin: 05/30/23 09:16 Dose: 55 mg Documented By: ADELA Ondansetron HCl (Ondansetron Hcl 4 Mg/2 Ml Vial) 4 mg IVPUSH Q8H PRN PRN Reason: Nausea and Vomiting Pharmacy Consult (Consult Rx Vancomycin Dosing) 1 each MISCELLANE DAILY PRN PRN Reason: Consult order Pharmacy Consult (Consult Rx Perform Med Rec) 1 each MISCELLANE ONCE PRN PRN Reason: Consult order Sodium Chloride (0.9 % Sodium Chloride Flush 3 Ml Syringe) 3 ml IVFLUSH QSHIFT [facility] Last Admin: 05/30/23 07:49 Dose: 3 ml Documented By: ADELA Labs 05/30/23 07:15 05/30/23 07:15 Labs: Laboratory Results - last 24 hr 05/29/23 05/29/23 05/29/23 23:34 23:34 23:34 MCV 83.7 MCH 28.7 MCHC 34.3 RDW 12.1 Plt Count 189 MPV 10.1 Immature Gran % (Auto) 0.6 H Neut % (Auto) 66.5 Lymph % (Auto) 20.1 [place] % (Auto) 12.3 H Eos % (Auto) 0.1 Baso % (Auto) 0.4 Lymph # (Auto) 1.7 [place] # (Auto) 1.1 Eos # (Auto) 0.0 Baso # (Auto) 0.0 Abs Immat Gran (auto) 0.05 H Absolute Neuts (auto) 5.7 Absolute Nucleated RBC 0.000 Nucleated RBC % (auto) 0.0 ESR 28 H PT INR APTT Anion Gap 14 Estim Creat Clear Calc 129.2 Estimated GFR > 60 Random Glucose 92 Lactic Acid Calcium 9.3 Total Bilirubin 0.7 AST 13 ALT 18 Alkaline Phosphatase 127 H C-Reactive Protein 18.97 H Total Protein 7.1 Albumin 3.8 Blood Type Antibody Screen 05/29/23 05/29/23 05/29/23 23:34 23:34 23:45 MCV MCH MCHC RDW Plt Count MPV Immature Gran % (Auto) Neut % (Auto) Lymph % (Auto) [place] % (Auto) Eos % (Auto) Baso % (Auto) Lymph # (Auto) [place] # (Auto) Eos # (Auto) Baso # (Auto) Abs Immat Gran (auto) Absolute Neuts (auto) Absolute Nucleated RBC Nucleated RBC % (auto) ESR PT 14.0 H INR 1.2 H APTT 29.0 Anion Gap Estim Creat Clear Calc Estimated GFR Random Glucose Lactic Acid 0.8 Calcium Total Bilirubin AST ALT Alkaline Phosphatase C-Reactive Protein Total Protein Albumin Blood Type B Positive Antibody Screen NEGATIVE 05/30/23 05/30/23 05/30/23 07:15 07:15 07:15 MCV 85.2 MCH 29.0 MCHC 34.0 RDW 12.1 Plt Count 166 MPV 10.6 Immature Gran % (Auto) 0.5 H Neut % (Auto) 62.6 Lymph % (Auto) 24.2 [place] % (Auto) 12.2 H Eos % (Auto) 0.1 Baso % (Auto) 0.4 Lymph # (Auto) 1.9 [place] # (Auto) 1.0 Eos # (Auto) 0.0 Baso # (Auto) 0.0 Abs Immat Gran (auto) 0.04 H Absolute Neuts (auto) 5.0 Absolute Nucleated RBC 0.000 Nucleated RBC % (auto) 0.0 ESR PT INR APTT Anion Gap 13 Estim Creat Clear Calc 133.3 131.3 Estimated GFR > 60 > 60 Random Glucose 77 Lactic Acid Calcium 8.9 Total Bilirubin AST ALT Alkaline Phosphatase C-Reactive Protein Total Protein Albumin Blood Type Antibody Screen Assessment and Plan (1) Abscess of forearm, right: Status: Acute (2) Cellulitis: Status: Acute Plan This is a 37-year-old male with 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 #. Right forearm abscesses with cellulitis. Surgery to assess for I and D, IV Abx, follow blood cultures #. IV opioid use disorder. On methadone, hasn't gotten dose in 4 days. Consulting addiction team. Monitor for withdrawals. DVT prophylaxis: Mechanical Full code Regular diet Need for inpatient: IV antibiotics for cellulitis and abscess Time Spent With Patient Time: Total time managing care of this patient today ____ minutes. Quality Stroke Does the patient have a stroke diagnosis?: No VTE Prior VTE?: No VTE Risk Level:: Medical - moderate - high VTE Device Contraindication: Treatment Not Indicated VTE Drug Contraindication: N/A - Med Ordered
--- NOTE | 2023-05-30 09:49 | PM.CNGS ---
History of Present Illness Consult details Consult date: 05/30/23 Narrative: 37M admitted for a right forearm abscess. He was in the ED last May 28 for a right forearm abscess. I and D was done and he was recommended admission but he refused. He went back to the ED last night for worsening redness. The packing was removed. He was admitted for failure of oral abx. He is a known IVDA patient. He admits that the abscess is from needle tracks. Review of Systems Constitutional: Constitutional: Denies chills and Denies fever(s) Cardiovascular: Cardiovascular: Denies chest pain Respiratory: Respiratory: Denies cough Gastrointestinal: Gastrointestinal: Denies abdominal pain Genitourinary: Genitourinary: Denies difficulty urinating PMFSH Past Medical History Medical History IV drug user Social History Social History Household Members: Significant Other Housing: [facility] Do you presently have visiting nurse or other home services: No Alcohol intake: never Patient Tobacco Use Status: Current everyday Tobacco user Tobacco use type: Cigarette Cigarettes Per Day: 10 Smoked in Last 30 Days: Yes Patient Interested in Nicotine Replacement: Yes Patient Given Instructions on How to Stop Smoking: No Second Hand Smoke Exposure: Yes Use of substances other than those prescribed or required for medical reasons: Yes Substance Use Type: Crack/Cocaine, Heroin and Marijuana Substance Use Frequency: Occasionally Last Used Substance: Weeks (ago) Last Used Substance Other:: 1 week ago Currently Displaying Signs/Symptoms of Drug Intoxication Withdrawal: No Any prior treatment program specific to substance use: No Have you been hit, kicked, punched, or otherwise hurt by someone within the past year? If so, by whom?: No Do you feel safe in your current relationship?: Yes Is there a partner from a previous relationship who is making you feel unsafe now?: No Are you made to feel afraid or neglected: No Advance Directives: No Advance Directives Information Provided: No Do you have thoughts of harming others: None Do you have a plan to hurt others: No Plan Recently lost weight without trying: Yes How much weight loss: Unsure Eating poorly because of decreased appetite: Yes Nutrition screen score: 5 Nutrition Risks: No Nutritional Risk Poor oral hygiene: No Meds Allergies Allergy/AdvReac Type Severity Reaction Status Date / Time No Known Allergies Allergy Verified 05/29/23 18:43 Active Medications: Current Medications Acetaminophen (Acetaminophen 325 Mg Tablet) 650 mg PO Q6H PRN PRN Reason: Pain, Mild (Pain Scale 1-3) Last Admin: 05/30/23 03:00 Dose: 650 mg Ceftriaxone Sodium 1 gm/ (Sodium Chloride) 50 mls @ 100 mls/hr IV Q24H [facility] Vancomycin HCl 1,250 mg/ (Sodium Chloride) 250 mls @ 166.667 mls/hr IV Q12H [facility] Melatonin (Melatonin 3 Mg Tablet) 6 mg PO BEDTIME PRN PRN Reason: Insomnia Last Admin: 05/30/23 00:45 Dose: 6 mg Methadone HCl (Methadone Hcl 20 Mg/2 Ml Oral.Conc) 55 mg PO DAILY [facility] Last Admin: 05/30/23 09:16 Dose: 55 mg Ondansetron HCl (Ondansetron Hcl 4 Mg/2 Ml Vial) 4 mg IVPUSH Q8H PRN PRN Reason: Nausea and Vomiting Pharmacy Consult (Consult Rx Vancomycin Dosing) 1 each MISCELLANE DAILY PRN PRN Reason: Consult order Pharmacy Consult (Consult Rx Perform Med Rec) 1 each MISCELLANE ONCE PRN PRN Reason: Consult order Sodium Chloride (0.9 % Sodium Chloride Flush 3 Ml Syringe) 3 ml IVFLUSH QSHIFT [facility] Last Admin: 05/30/23 07:49 Dose: 3 ml Home Medications Medication Instructions Recorded Confirmed Last Taken Type methadone 10 mg/mL oral concentrate 105 mg PO DAILY 05/30/23 05/30/23 05/25/23 History nicotine (polacrilex) 4 mg gum 4 mg PO Q2H PRN Nicotine Cravings 05/30/23 05/30/23 Unknown History Physical Exam Vital Signs: Vital Signs: Last Vital Signs Temp 98 F 05/30/23 07:17 Pulse 78 05/30/23 07:17 Resp 18 05/30/23 07:17 BP 119/71 05/30/23 07:17 Pulse Ox 97 05/30/23 07:17 O2 Del Method Room Air 05/30/23 07:17 BMI result Body Mass Index 26.9 Const: General: comfortable and no acute distress Resp: Effort & Inspection: normal respiratory effort Cardio: Rate: regular rate GI: Palpation (GI): Soft to palpation and nontender Extrem: Other: right forearm - open I and D site, freely draining pus, surrounding cellulitis Results Labs 05/30/23 07:15 05/30/23 07:15 Labs: Abnormal lab results 05/29/23 05/29/23 05/29/23 Range/Units 23:34 23:34 23:34 Hgb 13.9 L (14.0-18.0) g/dl Hct 40.5 L (42.0-52.0) % Immature Gran % (Auto) 0.6 H (0.0-0.4) % [place] % (Auto) 12.3 H (2-11) % Abs Immat Gran (auto) 0.05 H (0.00-0.03) X10*3/uL ESR 28 H (0-15) MM/HR PT (10.0-13.1) SEC INR (0.9-1.1) Alkaline Phosphatase 127 H (39-117) U/L C-Reactive Protein 18.97 H (< or = 0.50) mg/dL 05/29/23 05/30/23 Range/Units 23:34 07:15 Hgb 13.7 L (14.0-18.0) g/dl Hct 40.3 L (42.0-52.0) % Immature Gran % (Auto) 0.5 H (0.0-0.4) % [place] % (Auto) 12.2 H (2-11) % Abs Immat Gran (auto) 0.04 H (0.00-0.03) X10*3/uL ESR (0-15) MM/HR PT 14.0 H (10.0-13.1) SEC INR 1.2 H (0.9-1.1) Alkaline Phosphatase (39-117) U/L C-Reactive Protein (< or = 0.50) mg/dL Short CBC 05/29/23 05/30/23 Range/Units 23:34 07:15 WBC 8.6 8.0 (4.8-10.8) X10*3/uL Hgb 13.9 L 13.7 L (14.0-18.0) g/dl Hct 40.5 L 40.3 L (42.0-52.0) % Plt Count 189 166 (160-400) X10*3/uL BMP 05/29/23 05/30/23 05/30/23 23:34 07:15 07:15 Sodium 136 141 Potassium 3.6 4.0 Chloride 99 106 Carbon Dioxide 27 26 BUN 13 9 Creatinine 0.75 0.66 0.67 Calcium 9.3 8.9 Liver Function 05/29/23 Range/Units 23:34 Total Bilirubin 0.7 (0.0-1.0) mg/dL AST 13 (5-37) U/L ALT 18 (0-40) U/L Alkaline Phosphatase 127 H (39-117) U/L Albumin 3.8 (3.5-5.0) g/dL All other labs normal. Assessment and Plan (1) Abscess of forearm, right: Status: Acute This had been drained by the ED. Packing was removed by ED staff last night. The I and D stie is open and freely draining. I was able to drain more pus bu squeezing proximal forearm. I applied dry dressings and wrapped forearm with Adalberto roll. Cultures should followed. He is on IV abx. Dry dressings daily. I will follow along while he is in the hospital. Time Spent With Patient Time: Total time managing care of this patient today ____ minutes. Procedures Date of Service Date of Service: 05/30/23
--- NOTE | 2023-05-30 11:36 | MHC.CM.PN ---
Addendum entered by Azra Beckett 05/31/23 12:25: PT COMPLETED A NEW HCP, NOW ON FILE Addendum entered by Azra Beckett 05/30/23 11:38: PT ACTIVE WITH [facility] FOR MMTP Original Note: PT REPORTS HE LIVES WITH HIS GIRLFRIEND AND IS INDEPENDENT WITH CARE HE DENIES USING DME OR SERVICES HE DOES NOT HAVE A HCP BUT WILL CONSIDER COMPLETING ONE NAMING HIS MOTHER, CARINA BECKER, HIS AGENT HE IS AWARE CM CAN ASSIST PCP: DOUGLAS GARCIA DCP: HOME NO SERVICES VIA PRIVATE TRANSPORT
[2023-05-30] MEDS: ondansetron HCL 4 MG/2 ML VIAL IVPUSH (11:46)
--- NOTE | 2023-05-30 13:15 | MHC.RECOVRN ---
Met with pt in 359 after consult placed to Addiction Medicine for OUD. Pt admitted for tx of abscess and cellulitis. Pt sitting in bed, eyes closed, easily wakes to voice. Pt reports using heroin, 0-4 bags daily, IV, as well as cocaine, 1/2 gram daily, IV. Pt currently receives methadone through [facility], 105 mg daily, x 1 year. Pt reports receiving take home bottles. Pt reports he last went to the [facility] on 05/25 and received take homes for 05/26, 05/27, 05/28. Pt did not go to the [facility] on 05/29 [place] [facility] [place] Spoke with Elvi Rasheed, program management manager of [facility] who confirmed pt did receive THB for those dates. New methadone verification form filled out and sent to pharmacy. Provider and RN aware.
[2023-05-30] MEDS: methADONE HCl 20 MG/2 ML ORAL.CONC 50 MG PO (14:45)
[2023-05-30] MEDS: vancomycin HCL 1,250 MG in 0.9 % Sodium Chloride 250 ML 166.67 MG IV (17:45)
[2023-05-31] MEDS: vancomycin HCL 1,250 MG in 0.9 % Sodium Chloride 250 ML 166.67 MG IV (05:30)
[2023-05-31] MEDS: Acetaminophen 325 MG TABLET 650 MG PO (05:37)
[2023-05-31 07:33] VITALS: BP 119/80; PULSE 72; RESP 18; TEMP 36.6; O2SAT 96
[2023-05-31 08:12] LABS: Creatinine Clr Calc Pharmacy 122.1; Estimated Glomerular Filt Rate > 60
--- NOTE | 2023-05-31 08:35 | HO.PM.IMPN ---
Subjective Subjective Date of Service: 05/31/23 Interval History: f/u on abscess of the arm in drug use patient Physical Exam Vital Signs: Vital Signs: Last Vital Signs Temp 98 F 05/31/23 07:33 Pulse 72 05/31/23 07:33 Resp 18 05/31/23 07:33 BP 119/80 05/31/23 07:33 Pulse Ox 96 05/31/23 07:33 O2 Del Method Room Air 05/31/23 07:33 BMI result Body Mass Index 26.9 Const: Other: Middle-aged male lying in bed in no distress Neck supple, no JVD Regular rate and rhythm, S1-S2 heard Regular breath sounds bilaterally, no wheezing or crackles appreciated Abdomen soft nontender, no guarding, no rigidity Patient is awake, alert and oriented to self, place, time and person ; no focal motor deficit Extremity: erythema resolved, incision are was draining puss Psych: Normal mood No pedal edema Objective Data Active Medications Acetaminophen (Acetaminophen 325 Mg Tablet) 650 mg PO Q6H PRN PRN Reason: Pain, Mild (Pain Scale 1-3) Last Admin: 05/31/23 05:37 Dose: 650 mg Documented By: SABRINA Albuterol/Ipratropium (Albuterol/Iprat 2.5/0.5mg 3 Ml Ampul.Neb) 3 ml INHALE Q4H PRN PRN Reason: Wheezing Ceftriaxone Sodium 1 gm/ (Sodium Chloride) 50 mls @ 100 mls/hr IV Q24H [facility] Last Infusion: 05/30/23 22:46 Dose: 0 mls/hr Documented By: SABRINA Vancomycin HCl 1,250 mg/ (Sodium Chloride) 250 mls @ 166.667 mls/hr IV Q12H [facility] Last Infusion: 05/31/23 07:08 Dose: 0 mls/hr Documented By: SABRINA Melatonin (Melatonin 3 Mg Tablet) 6 mg PO BEDTIME PRN PRN Reason: Insomnia Last Admin: 05/30/23 00:45 Dose: 6 mg Documented By: LIUDMILA Methadone HCl (Methadone Hcl 20 Mg/2 Ml Oral.Conc) 55 mg PO DAILY [facility] Last Admin: 05/30/23 09:16 Dose: 55 mg Documented By: ADELA Ondansetron HCl (Ondansetron Hcl 4 Mg/2 Ml Vial) 4 mg IVPUSH Q8H PRN PRN Reason: Nausea and Vomiting Last Admin: 05/30/23 11:46 Dose: 4 mg Documented By: ADELA Pharmacy Consult (Consult Rx Vancomycin Dosing) 1 each MISCELLANE DAILY PRN PRN Reason: Consult order Pharmacy Consult (Consult Rx Perform Med Rec) 1 each MISCELLANE ONCE PRN PRN Reason: Consult order Sodium Chloride (0.9 % Sodium Chloride Flush 3 Ml Syringe) 3 ml IVFLUSH QSHIFT [facility] Last Admin: 05/30/23 22:03 Dose: 3 ml Documented By: SABRINA Labs 05/30/23 07:15 05/31/23 07:19 Labs: Laboratory Results - last 24 hr 05/31/23 07:19 Estim Creat Clear Calc 122.1 Estimated GFR > 60 Microbiology Microbiology Results: Microbiology 05/29/23 23:34 Blood Culture - Preliminary Blood - Venous No growth after 24 hours. 05/29/23 23:34 Blood Culture - Preliminary Blood - Venous No growth after 24 hours. Assessment and Plan (1) Abscess of forearm, right: Status: Acute (2) Cellulitis: Status: Acute Plan This is a 37-year-old male with 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 #. Right forearm abscesses with cellulitis s/p I&D, surgery following, cultures negative. if no further intervention needed will switch to oral Doxy and dischrge #. IV opioid use disorder. On methadone, hasn't gotten dose in 4 days. Consulting addiction team. Monitor for withdrawals. DVT prophylaxis: Mechanical Full code Regular diet Need for inpatient: IV antibiotics for cellulitis and abscess Time Spent With Patient Time: Total time managing care of this patient today ____ minutes. Quality Stroke Does the patient have a stroke diagnosis?: No VTE Prior VTE?: No VTE Risk Level:: Medical - moderate - high VTE Device Contraindication: Treatment Not Indicated VTE Drug Contraindication: N/A - Med Ordered
--- NOTE | 2023-05-31 08:37 | PM.DS ---
DS: Providers Provider Date of Service: 05/31/23 Date of admission: 05/29/23 22:42 Primary care physician: Hardeep Hdz MD Consults: 05/30/23 00:41 Addiction Medicine Routine Consulting Provider: Addiction Covering Reason for consultation: Opioid use disorder 05/30/23 04:36 Consult to General Surgery Routine Consulting Provider: [facility] Reason for consultation: Forearm abscesses DS: Diagnosis Discharge Diagnosis (1) Abscess of forearm, right: Status: Acute (2) Cellulitis: Status: Acute DS: Summary Hospital Course Hospital Course: Chief Complaint: Forearm infection This is a 37-year-old male with 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? Patient states he 1st noticed 4 days prior to presentation.? It has been progressively worsening.? He was seen in the ER 48 hours ago and underwent I&D of the abscess.? Patient was discharged on p.o. antibiotics.? He states that his arm got progressively worse in terms of redness and warmth.? He also has been having fevers and chills.? Patient denies similar infection in the past.? No chest discomfort, palpitations, shortness of breath, abdominal pain, changes in urinary or bowel habits.? He is on methadone for opioid use disorder.? His last IV use was about a week ago hospital course: Patient was admitted for management abscess and cellulitis of the right forearm related to substance use. The abscess area was I and D and was packed, he has been treated with IV vancomycin and ceftriaxone. Cultures so far remain negative. Erythema has significantly resolved. Plan is to transition to oral doxycycline for total of 10 days of antibiotics. Time Spent with Patient Time attestation: Total time managing care of this patient today ____ minutes. Discharge coordination time: Greater than 30 minutes Quality: Safe Use of Opioids Does Pt have an Active Cancer Diagnosis on the Problem List?: No Quality: Stroke Does the patient have a stroke diagnosis?: No Physical Exam Vital Signs: Vital Signs: Last Vital Signs Temp 98 F 05/31/23 07:33 Pulse 72 05/31/23 07:33 Resp 18 05/31/23 07:33 BP 119/80 05/31/23 07:33 Pulse Ox 96 05/31/23 07:33 O2 Del Method Room Air 05/31/23 07:33 BMI result Body Mass Index 26.9 Const: Other: see progress note 05/31/23 DS: Data Data Completed and Pending Labs on day of discharge: Laboratory Results - last 24 hr 05/31/23 07:19 Creatinine 0.72 Estim Creat Clear Calc 122.1 Estimated GFR > 60 Preliminary micro results at discharge 05/29/23 23:34 Blood Culture - Preliminary Blood - Venous No growth after 24 hours. 05/29/23 23:34 Blood Culture - Preliminary Blood - Venous No growth after 24 hours. Discharge Plan Discharge Anticipated Discharge Date/Time: 05/31/23 11:54 Patient Disposition: Home, Self-Care Discharge Diagnosis: Right forearm abscess slice cellulitis Referrals: Hardeep Hdz MD [Primary Care Provider] - 1 Week Discharge Medications: New doxycycline hyclate 100 mg tablet 100 mg PO BID 7 Days Qty: 14 0RF Continued albuterol sulfate 90 mcg/actuation HFA aerosol inhaler 1 inh inhalation QID PRN (Reason: shortness of breath or wheezing) Qty: 8.5 0RF ibuprofen 600 mg tablet 600 mg PO TID PRN (Reason: fever or pain) Qty: 20 0RF nicotine (polacrilex) 4 mg gum 4 mg PO Q2H PRN (Reason: Nicotine Cravings) methadone 10 mg/mL Concentrate 105 mg PO DAILY Discharge Orders: Discharge Order (Routine); Ordered 05/31/23 Ordered By: Devin Chacon Diet: Advance to usual diet Activity on Discharge: As tolerated Stand Alone Forms: Patient Portal Discharge page Care Plan Goals: Recovery from cellulitis/abscess. Health Concerns: Abscess of the skin, cellulitis, opiate use disorder. Plan of Treatment: Take doxycycline as recommended and follow up with your doctor within a week. Dry dressing to the area daily Assessment: as above
[2023-05-31] MEDS: methADONE HCl 20 MG/2 ML ORAL.CONC 55 MG PO (08:38)
[2023-05-31] MEDS: 0.9 % Sodium Chloride Flush 3 ML SYRINGE IVFLUSH (08:40)
--- NOTE | 2023-05-31 09:43 | PM.PNGS ---
Subjective Subjective Date of Service: 05/31/23 Interval history: feels well no new complaints less pain on right arm Physical Exam Vital Signs: Vital Signs: Last Vital Signs Temp 98 F 05/31/23 07:33 Pulse 72 05/31/23 07:33 Resp 18 05/31/23 07:33 BP 119/80 05/31/23 07:33 Pulse Ox 96 05/31/23 07:33 O2 Del Method Room Air 05/31/23 07:33 BMI result Body Mass Index 26.9 Const: General: comfortable and no acute distress Resp: Effort & Inspection: normal respiratory effort Cardio: Rate: regular rate GI: Palpation (GI): Soft to palpation Extrem: Other: right forearm much improved - cellulitis fading, induration almost resolving, I and D site open Objective Data Active Medications Acetaminophen (Acetaminophen 325 Mg Tablet) 650 mg PO Q6H PRN PRN Reason: Pain, Mild (Pain Scale 1-3) Last Admin: 05/31/23 05:37 Dose: 650 mg Documented By: SABRINA Albuterol/Ipratropium (Albuterol/Iprat 2.5/0.5mg 3 Ml Ampul.Neb) 3 ml INHALE Q4H PRN PRN Reason: Wheezing Ceftriaxone Sodium 1 gm/ (Sodium Chloride) 50 mls @ 100 mls/hr IV Q24H [facility] Last Infusion: 05/30/23 22:46 Dose: 0 mls/hr Documented By: SABRINA Vancomycin HCl 1,250 mg/ (Sodium Chloride) 250 mls @ 166.667 mls/hr IV Q12H [facility] Last Infusion: 05/31/23 07:08 Dose: 0 mls/hr Documented By: SABRINA Melatonin (Melatonin 3 Mg Tablet) 6 mg PO BEDTIME PRN PRN Reason: Insomnia Last Admin: 05/30/23 00:45 Dose: 6 mg Documented By: LIUDMILA Methadone HCl (Methadone Hcl 20 Mg/2 Ml Oral.Conc) 55 mg PO DAILY [facility] Last Admin: 05/31/23 08:38 Dose: 55 mg Documented By: ADELA Ondansetron HCl (Ondansetron Hcl 4 Mg/2 Ml Vial) 4 mg IVPUSH Q8H PRN PRN Reason: Nausea and Vomiting Last Admin: 05/30/23 11:46 Dose: 4 mg Documented By: ADELA Pharmacy Consult (Consult Rx Vancomycin Dosing) 1 each MISCELLANE DAILY PRN PRN Reason: Consult order Pharmacy Consult (Consult Rx Perform Med Rec) 1 each MISCELLANE ONCE PRN PRN Reason: Consult order Sodium Chloride (0.9 % Sodium Chloride Flush 3 Ml Syringe) 3 ml IVFLUSH QSHIFT [facility] Last Admin: 05/31/23 08:40 Dose: 3 ml Documented By: ADELA Labs 05/30/23 07:15 05/31/23 07:19 Labs: Laboratory Results - last 24 hr 05/31/23 07:19 Estim Creat Clear Calc 122.1 Estimated GFR > 60 Microbiology Microbiology Results: Microbiology 05/29/23 23:34 Blood Culture - Preliminary Blood - Venous No growth after 24 hours. 05/29/23 23:34 Blood Culture - Preliminary Blood - Venous No growth after 24 hours. Procedures Date of Service Date of Service: 05/31/23 Progress Note: A&P Assessment and plan (1) Abscess of forearm, right: Status: Acute Assessment and Plan: I and D done dressings chhanged wound care with dry dressings daily - I wrapped forearm with Adalberto roll ffup on cultures abx Time Spent With Patient Time: Total time managing care of this patient today ____ minutes. Quality Stroke Does the patient have a stroke diagnosis?: No VTE Prior VTE?: No VTE Risk Level:: Medical - moderate - high VTE Device Contraindication: Treatment Not Indicated VTE Drug Contraindication: N/A - Med Ordered
--- NOTE | 2023-05-31 12:25 | MHC.CM.PN ---
PT TO DC HOME TODAY WITH NO SERVICES MOTHER BEDSIDE TO TRANSPORT
--- NOTE | 2023-05-31 13:26 | PC.NURSE ---
Pt. received 55mg PO Methadone, did not want to wait for full dose to be entered to total 105 mg PO, stated he have bottles at home if he is going to need it.
== END 2023-05-31 13:32 | disposition home or self-care (01) | DRG 383 ==
LOC: HO.ED 23:16 → HO.EDOVER 05-30 00:02 → HO.S3 05-30 00:22
PROVIDERS: Physician Assistant; Admitting Provider Student in an Organized Health Care Education/Training Program; Emergency Provider Emergency Medicine; PCP Internal Medicine; Visit Provider Internal Medicine
DX: L02.413 Cutaneous abscess of right upper limb (principal); F11.20 Opioid dependence, uncomplicated; F17.210 Nicotine dependence, cigarettes, uncomplicated; Z71.6 Tobacco abuse counseling; Z79.899 Other long term (current) drug therapy
CPT/HCPCS: 36415; 73201; 80048; 80053; 82565; 83605; 85025; 85610; 85652; 85730; 86140; 86850; 86900; 86901; 87040; 93005; 99285; J0696; J1650; J2405; J3370; J3371; Q9967

== ENCOUNTER → 2023-05-29 22:34 | Outpatient (BNV) | payer OTHER, SELFPAY | PROVIDERS: Admitting Provider Student in an Organized Health Care Education/Training Program; Emergency Provider Emergency Medicine; PCP Internal Medicine; Visit Provider Internal Medicine Cardiovascular Disease | DX: R94.31 Abnormal electrocardiogram [ECG] [EKG] (principal) | CPT/HCPCS: 93010 ==

== ENCOUNTER → 2023-05-29 22:42 | Outpatient (BNV) | payer OTHER, SELFPAY | PROVIDERS: Admitting Provider Student in an Organized Health Care Education/Training Program; Emergency Provider Emergency Medicine; PCP Internal Medicine; Visit Provider Surgery | DX: L02.413 Cutaneous abscess of right upper limb (principal) | CPT/HCPCS: 99222; 99231 ==

== ENCOUNTER → 2023-05-29 22:42 | Outpatient (BNV) | payer OTHER, SELFPAY | PROVIDERS: Admitting Provider Student in an Organized Health Care Education/Training Program; Emergency Provider Emergency Medicine; PCP Internal Medicine; Visit Provider Student in an Organized Health Care Education/Training Program | DX: L02.413 Cutaneous abscess of right upper limb (principal); L03.90 Cellulitis, unspecified | CPT/HCPCS: 99222; 99232; 99239 ==

== ENCOUNTER 2024-12-08 19:50 | Emergency (ER) | payer OTHER, SELFPAY ==
[2024-12-08 20:02] VITALS: BP 138/93; PULSE 62; O2SAT 97; BMI 26.6
[2024-12-08 20:26] VITALS: BP 122/82; PULSE 64; RESP 10; TEMP 36.3; O2SAT 97
[2024-12-08 20:48] LABS: MANUAL DIFF FLAG NO
[2024-12-08 20:49] LABS: Basophils Percent Auto 0.3 % (0-2); Eosinophils Percent Auto 0.1 % (0-4); Hematocrit 38.4 % (42.0-52.0); Hemoglobin 13.6 g/dl (14.0-18.0); Imm Gran Abs Auto 0.02 X10*3/uL (0.00-0.03); Imm Gran Pct Auto 0.2 % (0.0-0.4); Lymphocytes Absolute Auto 2.1 X10*3/uL (1.2-4.9); Mean Corpuscular HGB Conc 35.4 g/dl (31.0-36.0); Mean Corpuscular Hemoglobin 29.2 pg (27.0-33.0); Mean Corpuscular Volume 82.6 fL (80.0-98.0); Mean Platelet Volume 8.9 fL (9.4-12.4); Monocytes Absolute Auto 0.6 X10*3/uL (0.1-1.2); Monocytes Percent Auto 6.2 % (2-11); Neutrophils Absolute Auto 6.5 x10*3/uL (2.0-8.3); Neutrophils Percent Auto 70.2 % (45-73); Platelet Count 220 X10*3/uL (160-400); Red Blood Count 4.65 X10*6/uL (4.60-5.80); Red Cell Distribution Width 11.9 % (11.0-16.0); White Blood Count 9.3 X10*3/uL (4.8-10.8)
[2024-12-08 21:05] LABS: Alanine Aminotransferase 8 U/L (0-40); Albumin Level 4.1 g/dL (3.5-5.0); Alkaline Phosphatase 128 U/L (39-117); Anion Gap 14 (12-20); Aspartate Amino Transferase 15 U/L (5-37); Bilirubin Total 0.7 mg/dL (0.0-1.0); Blood Urea Nitrogen 17 mg/dL (9-16); Calcium 9.7 mg/dL (8.4-10.2); Carbon Dioxide 24 mmol/L (22-29); Chloride 106 mmol/L (96-108); Creatinine Clr Calc Pharmacy 102.8; Estimated Glomerular Filt Rate > 60; Ethanol < 10 mg/dL; Glucose Random 124 mg/dL (60-115); Potassium 4.4 mmol/L (3.3-5.1); Sodium 140 mmol/L (135-145); Total Protein 7.2 g/dL (6.5-8.0)
--- NOTE | 2024-12-08 22:36 | MHC.EDTECH ---
belongings in [facility] shelf 1
[2024-12-08 22:48] VITALS: BP 84/49; PULSE 58; TEMP 36.4; O2SAT 96
[2024-12-08] MEDS: 0.9 % Sodium Chloride 2,000 ML 999 ML IVCONT (23:10)
[2024-12-08 23:49] VITALS: BP 88/55; PULSE 56; RESP 16; TEMP 36.4; O2SAT 97
--- NOTE | 2024-12-08 23:50 | MHC.EDTECH ---
This pct assumed care of Patient at 2300 ,vitals taken ,JENN Gustafson is aware of Patient low blood Pressure .Call leiva within Pt reach .
--- NOTE | 2024-12-08 23:53 | ED_ITS ---
HPI - General Adult General Chief complaint: ETOH/Substance Use Stated complaint: found sleeping unresponsive drug use, seeking help Time Seen by Provider: 12/08/24 22:07 Source: patient and EMS Mode of arrival: EMS Limitations: no limitations History of Present Illness ED Provider: Dr. Lorraine Arrington HPI narrative: Patient comes to the emergency room by ambulance. Patient was found unresponsive by a bystander in a gas station. Patient was sternal rub by PD and woke up. No Narcan was given. Patient admits to using 1 bag of heroin. Patient states that he did not have access to his methadone. Patient states that his car was repossessed and had his methadone in the car. Patient went to the methadone clinic and he was not dose. Patient states that he uses heroin instead. Patient denies SI or HI. Patient denies any falls to his normal Related Data Home Medications ?Medication ?Instructions ?Recorded ?Confirmed methadone 10 mg/mL oral concentrate 105 mg PO DAILY 05/30/23 05/30/23 nicotine (polacrilex) 4 mg gum 4 mg PO Q2H PRN Nicotine Cravings 05/30/23 05/30/23 Previous Rx's ?Medication ?Instructions ?Recorded albuterol sulfate 90 mcg/actuation 1 inh inhalation QID PRN shortness 10/04/22 aerosol inhaler of breath or wheezing #8.5 grams ibuprofen 600 mg tablet 600 mg PO TID PRN fever or pain 05/28/23 #20 tabs doxycycline hyclate 100 mg tablet 100 mg PO BID 7 days #14 tabs 05/31/23 Allergies Allergy/AdvReac Type Severity Reaction Status Date / Time No Known Allergies Allergy Verified 12/08/24 20:05 Review of Systems 2 Review of Systems: Constitutional : No Weight loss, No Fever, No Chills, No Night Sweats, No Fatigue, No Malaise ENT/Mouth : No Hearing loss, No Ear Pain, No Nasal Congestion, No Sinus Pain, No Hoarseness, No sore throat, No Rhinorrhea, No Swallowing Difficulty Eyes: No Eye Pain, No Swelling, No Redness, No Foreign Body, No Discharge, No Vision Changes Cardiovascular : No Chest Pain, No SOB, No Dyspnea on Exertion, No Orthopnea, No Edema, No Palpitations Respiratory : No Cough, No Sputum, No Wheezing, No Smoke Exposure, No Dyspnea Gastrointestinal : No Nausea, No Vomiting, No Diarrhea, No Constipation, No abdominal Pain, No Hematochezia, No Melena Genitourinary : no irregular bleeding, No Dysuria, No Urinary Frequency, No Hematuria, No Urinary Incontinence, No Urgency, No Flank Pain, No Urinary Flow Changes, No Hesitancy Musculoskeletal : No joint pain, No Myalgias, No Joint Swelling Skin : No Skin Lesions, No rash Neuro : No Weakness, No Numbness, No Paresthesias, No Loss of Consciousness, No Dizziness, No Headache Psych : No Anxiety/Panic, No Depression, No SI/HI/AH/VH, admits to using heroin Heme/Lymph: No Bruising, No Bleeding,No Lymphadenopathy Endocrine : No Polyuria, No Polydipsia, No Temperature Intolerance [facility] Past Medical History Medical History IV drug user Social History Social History Household Members: Significant Other Housing: [facility] Do you presently have visiting nurse or other home services: No Alcohol intake: never Patient Tobacco Use Status: Current everyday Tobacco user Tobacco use type: Cigarette Cigarettes Per Day: 10 Smoked in Last 30 Days: Yes Second Hand Smoke Exposure: Yes Substance Use Type: Heroin Substance Use Frequency: Chronic Longstanding Advance Directives: No Advance Directives Information Provided: Yes Do you have a plan to hurt others: No Plan service: No Physical Exam ED Vital Signs: Vital Signs - 24 hr 12/08/24 20:02 12/08/24 20:26 12/08/24 22:48 Temperature 97.4 F 97.5 F Pulse Rate 64 58 Respiratory Rate 10 L Blood Pressure 122/82 84/49 L Pulse Oximetry 97 96 Oxygen Delivery Method Room Air Room Air Room Air 12/08/24 23:49 Temperature 97.5 F Pulse Rate 56 Respiratory Rate 16 Blood Pressure 88/55 L Pulse Oximetry 97 Oxygen Delivery Method Room Air BMI result Body Mass Index 26.6 Const Other: Appearance: Alert. Oriented X3. No acute distress. Eyes: Pupils equal, round and reactive to light. ENT: Pharynx normal. Neck: Normal inspection. Neck supple. No lymph nodes noted. No crepitus CVS: Normal heart rate and rhythm. Pulses normal. Normal S1 and S2 Respiratory: No respiratory distress. Breath sounds normal. No Wheezing. No rales Abdomen: Soft and nontender. No rigidity. No distention. Skin: Skin warm and dry. Normal skin color. Normal skin turgor. Extremities: No lower extremity edema. No Lacerations. No Rash Neuro: Oriented X 3. No motor deficit. No sensory deficit. Moving all extremities. No slurred speech. CN 2 through 12 grossly intact Psych: calm, cooperative, normal affect Medications Administered Discontinued Medications Generic Name Dose Route Start Last Admin Trade Name Fredy PRN Reason Stop Dose Admin Sodium Chloride 2,000 mls @ 999 mls/hr 12/08/24 22:59 12/09/24 01:10 Ns IVCONT 12/09/24 00:59 Infused .Q2H1M ONE Infusion Medical Decision Making Medical Decision Making [facility] Narrative: My interpretation of labs: No significant abnormality in patient's hematology and chemistry, toxicology negative for EtOH Urinalysis spend Patient's vitals Patient, cooperative, denies SI or HI I was informed by the patient's nurse that the patient's blood pressure is on the lower side, likely secondary to heroin use. Patient receiving IV fluids Patient's blood pressure 111/66, patient feeling at baseline. Patient has no complaints. Patient will be discharged home with Narcan Differential Diagnosis Differential Diagnoses: The differential diagnosis associated with the presentation includes (Overdose, polysubstance abuse) Lab Data [facility] Lab Attestation statement: I reviewed the patient's lab results. 12/08/24 20:44 12/08/24 20:44 Labs: Lab Results 12/08/24 Range/Units 20:44 WBC 9.3 (4.8-10.8) X10*3/uL RBC 4.65 (4.60-5.80) X10*6/uL Hgb 13.6 L (14.0-18.0) g/dl Hct 38.4 L (42.0-52.0) % MCV 82.6 (80.0-98.0) fL MCH 29.2 (27.0-33.0) pg MCHC 35.4 (31.0-36.0) g/dl RDW 11.9 (11.0-16.0) % Plt Count 220 D (160-400) X10*3/uL MPV 8.9 L (9.4-12.4) fL Immature Gran % (Auto) 0.2 (0.0-0.4) % Neut % (Auto) 70.2 (45-73) % Lymph % (Auto) 23.0 (20-40) % Beckham % (Auto) 6.2 (2-11) % Eos % (Auto) 0.1 (0-4) % Baso % (Auto) 0.3 (0-2) % Lymph # (Auto) 2.1 (1.2-4.9) X10*3/uL Beckham # (Auto) 0.6 (0.1-1.2) X10*3/uL Eos # (Auto) 0.0 (0.0-0.4) X10*3/uL Baso # (Auto) 0.0 (0.0-0.2) X10*3/uL Abs Immat Gran (auto) 0.02 (0.00-0.03) X10*3/uL Absolute Neuts (auto) 6.5 (2.0-8.3) x10*3/uL Absolute Nucleated RBC 0.000 (0.0-0.012) X10*3/uL Nucleated RBC % (auto) 0.0 (0.0-0.2) /100WBC Sodium 140 (135-145) mmol/L Potassium 4.4 (3.3-5.1) mmol/L Chloride 106 (96-108) mmol/L Carbon Dioxide 24 (22-29) mmol/L Anion Gap 14 (12-20) BUN 17 H (9-16) mg/dL Creatinine 0.87 (0.5-1.4) mg/dL Estim Creat Clear Calc 102.8 Estimated GFR > 60 Random Glucose 124 H (60-115) mg/dL Calcium 9.7 D (8.4-10.2) mg/dL Total Bilirubin 0.7 (0.0-1.0) mg/dL AST 15 (5-37) U/L ALT 8 (0-40) U/L Alkaline Phosphatase 128 H (39-117) U/L Total Protein 7.2 (6.5-8.0) g/dL Albumin 4.1 (3.5-5.0) g/dL Ethyl Alcohol < 10 mg/dL Critical Care Time Critical Care Time Critical Care Time: Yes Total Critical Care Time: 60 Attestation: I have personally provided critical care time. Time includes review of lab data, radiology results, discussion with consultants, and monitoring for potential decompensation. Intervention performed as documented. Discharge Plan Discharge Clinical Impression: Accidental overdose, Hypotension Patient Disposition: Still a Patient Additional Instructions: Overdose You were seen in our Emergency Department for an overdose today. You received narcan in order to reverse the effects of overdose. Narcan only lasts about 45 min to 1 hour in the system. You may have been given narcan to take home with you today, please keep it near you if you are going to use again, so others can use it if needed.? The number one risk for fatal overdose is using alone? [employer] is a 01/06 hotline where you can be on the phone with someone while you use, and they can call for help if they suspect an overdose: [phone] Things to look out for when you leave include severe vomiting or diarrhea, headaches, muscle cramps, fever, coughing, chest pain, or if you feel so short of breath you cannot walk to the bathroom. Please seek care and return any time for worsening symptoms.? You may have been provided with safer injection?items, please take time to take care of YOU and your health. Use new supplies whenever possible to lessen the chances of infections and other illnesses.? If you need more supplies, please go [facility],? [address] [place] [address] OR you can call or text to coordinate delivery of safer supplies. If you decide you want to stop or cut down on how much you?re using, please call the numbers on the list provided to you or you can come to our outpatient Addiction Treatment office [facility] (M-F 9am-5p) [address] [place] [address], [address] [phone] Prescriptions: No Action albuterol sulfate 90 mcg/actuation HFA aerosol inhaler 1 inh inhalation QID PRN (Reason: shortness of breath or wheezing) Qty: 8.5 0RF ibuprofen 600 mg tablet 600 mg PO TID PRN (Reason: fever or pain) Qty: 20 0RF nicotine (polacrilex) 4 mg gum 4 mg PO Q2H PRN (Reason: Nicotine Cravings) methadone 10 mg/mL Concentrate 105 mg PO DAILY doxycycline hyclate 100 mg tablet 100 mg PO BID 7 Days Qty: 14 0RF Print Language: Estonian
[2024-12-09 01:39] VITALS: BP 104/66; PULSE 64; RESP 16; TEMP 36.6; O2SAT 97
[2024-12-09 03:55] VITALS: BP 106/80; PULSE 70; RESP 15; TEMP 36.6; O2SAT 99
[2024-12-09 04:21] LABS: Appearance Urine Clear; Color Urine Yellow; Glucose Urine UA Negative (Negative); Leukocyte Esterase Urine Negative (Negative); Nitrite Urine Negative (Negative); Specific Gravity - Urine 1.015 (1.005-1.025); Urine Blood Negative (Negative); Urine Ketones Negative (Negative); Urine Protein Negative (Neg-Trace)
[2024-12-09 04:43] LABS: Amphetamine Screen Urine Not Detected (Not Detect); Barbiturates, Urine Not Detected (Not Detect); Benzodiazepines Screen Urine POSITIVE (Not Detect); Buprenorphine Scr Not Detected (Not Detect); Cannabinoid Screen Urine Not Detected (Not Detect); Cocaine Screen Urine POSITIVE (Not Detect); Fentanyl, urine POSITIVE (Not Detect); Methadone Screen, Urine Positive (Not Detect); Opiate Screen Urine Not Detected (Not Detect); Oxycodone Screen Urine Not Detected (Not Detect); Phencyclidine Screen Urine Not Detected (Not Detect)
--- NOTE | 2024-12-09 05:46 | PC.NURSE ---
this rn assumed care of pt @ 0300. pt awake forming complete sentences asking if pt can get methadone dose prior to leaving ed. needs methadone dose confirmed and ordered pt calm and cooperative
[2024-12-09 06:31] VITALS: BP 97/73; PULSE 67; RESP 16; TEMP 36.3; O2SAT 97
--- NOTE | 2024-12-09 06:41 | PC.NURSE ---
this rn attempting to confirm methadone dose called [facility] methadone [facility] awaiting call back from clinic staff
--- NOTE | 2024-12-09 07:07 | PC.NURSE ---
this rn confirmed dose of 100mg methadone daily. this rn made dr ba and oncoming rn aware of dose
--- NOTE | 2024-12-09 07:37 | HE.PHANOTE ---
RE: METHADONE DOSING Last dose of methadone 100 mg was given on 12/07/24 @1136 at [facility] [phone] per Avril Collins RN.
[2024-12-09] MEDS: methADONE HCl 20 MG/2 ML ORAL.CONC 100 MG PO (07:56)
[2024-12-09] MEDS: Naloxone HCl Nasal TAKE HOME 4 MG SPRAY 8 MG NOSTRILALT (08:03)
[2024-12-09 08:06] VITALS: BP 97/73; PULSE 67; RESP 16; TEMP 36.3; O2SAT 97
== END 2024-12-09 08:25 | disposition home or self-care (01) ==
PROVIDERS: Physician Assistant Medical; Emergency Provider Emergency Medicine
DX: T40.1X1A Poisoning by heroin, accidental (unintentional), initial encounter (principal); R40.4 Transient alteration of awareness; Y92.524 Gas station as the place of occurrence of the external cause; I95.9 Hypotension, unspecified; F11.20 Opioid dependence, uncomplicated; F17.210 Nicotine dependence, cigarettes, uncomplicated; Z79.899 Other long term (current) drug therapy
CPT/HCPCS: 36415; 80053; 80307; 81003; 85025; 96360; 96361; 99285

== ENCOUNTER 2025-01-21 13:09 | Emergency (ER) | payer OTHER, SELFPAY ==
[2025-01-21 13:10] VITALS: BP 153/69; PULSE 85; RESP 16; TEMP 36.8; O2SAT 98
--- NOTE | 2025-01-21 13:12 | ED_ITS ---
HPI - General Adult General Chief complaint: Dental/Oral Stated complaint: mouth infection Time Seen by Provider: 01/21/25 13:14 Source: patient Mode of arrival: ambulatory Limitations: no limitations History of Present Illness ED Provider: Kamille Dobbs PA-C HPI narrative: Patient is a 39 year old assigned male at with a history of substance use presenting to the emergency department today with right lower dental pain and infection. Patient states that 2 days ago he was in detention and before being bailed out - the medical staff there said he had an infection on the right lower side of his mouth. Patient denies any dizziness, lightheadedness, abdominal pain, nausea, vomiting, fever, chills, blurry vision, double vision, loss of vision, chest pain, difficulty breathing, shortness of breath, back pain, night sweats, pain with urination, increased urinary frequency, increased urinary urgency, blood in his urine or stool, syncope or a near syncopal episode, recent trauma or falls, bowel incontinence, bladder incontinence, or any other complaints at this time. Onset (ago): day(s) (2) Location: mouth and right Relieving factors: none Exacerbating factors: none Associated symptoms: denies other symptoms Treatments prior to arrival: none Related Data Home Medications ?Medication ?Instructions ?Recorded ?Confirmed methadone 10 mg/mL oral concentrate 100 mg PO DAILY 05/30/23 12/09/24 nicotine (polacrilex) 4 mg gum 4 mg PO Q2H PRN Nicotine Cravings 05/30/23 05/30/23 Previous Rx's ?Medication ?Instructions ?Recorded albuterol sulfate 90 mcg/actuation 1 inh inhalation QID PRN shortness 10/04/22 aerosol inhaler of breath or wheezing #8.5 grams ibuprofen 600 mg tablet 600 mg PO TID PRN fever or pain 05/28/23 #20 tabs doxycycline hyclate 100 mg tablet 100 mg PO BID 7 days #14 tabs 05/31/23 amoxicillin 875 mg-potassium 1 tab PO BID 10 days #20 tabs 01/21/25 clavulanate 125 mg tablet Allergies Allergy/AdvReac Type Severity Reaction Status Date / Time No Known Allergies Allergy Verified 01/21/25 13:14 Review of Systems 2 Constitutional: Constitutional: Reports no additional constitutional complaints, Denies chills, Denies fever(s) and Denies night sweats Eyes: Eyes: Reports no additional eye complaints, Denies blurry vision, Denies change in vision, Denies diplopia, Denies eye discharge, Denies loss of vision and Denies eye pain ENT: Denies dizziness Comments: right lower dental pain Cardiovascular: Cardiovascular: Reports no additional cardiovascular complaints, Denies chest pain, Denies lightheadedness, Denies Loss of Consciousness and Denies dyspnea Respiratory: Respiratory: Reports no additional respiratory complaints and Denies dyspnea Gastrointestinal: Gastrointestinal: Reports no additional gastrointestinal complaints, Denies abdominal pain, Denies melena, Denies hematochezia, Denies change in bowel habits and Denies change in stool character Genitourinary: Genitourinary: Reports no additional male genitourinary complaints, Denies hematuria, Denies oliguria, Denies difficulty urinating, Denies dysuria, Denies urinary frequency, Denies urinary hesitancy, Denies urinary incontinence and Denies urinary urgency Musculoskeletal: Musculoskeletal: Reports no additional musculoskeletal complaints, Denies numbness and Denies tingling Neurologic: Denies dizziness, Denies loss of vision, Denies numbness and Denies tingling Psychiatric: Psychiatric: Reports no additional psychiatric complaints Endocrine: Endocrine: Reports no additional endocrine complaints Hematologic/Lymphatic: Hematologic/Lymphatic: Reports no additional hematologic/lymphatic complaints Allergic/Immunologic: Allergic/Immunologic: Reports no additional allergic/immunologic complaints PMFSH Past Medical History Attestation statement: The following information was validated with the patient. Source: old records reviewed and nursing notes reviewed Medical History IV drug user Social History Social History Household Members: Significant Other Housing: Condominium Do you presently have visiting nurse or other home services: No Alcohol intake: never Patient Tobacco Use Status: Current everyday Tobacco user Tobacco use type: Cigarette Cigarettes Per Day: 10 Second Hand Smoke Exposure: Yes Substance Use Type: Heroin service: No Physical Exam ED Vital Signs: Vital Signs - 24 hr 01/21/25 13:13 Temperature 98.2 F Pulse Rate 85 Respiratory Rate 16 Blood Pressure 153/69 H Pulse Oximetry 98 Oxygen Delivery Method Room Air BMI result Body Mass Index 0.2 Const General: cooperative, no acute distress, alert and awake Nutritional Appearance: well nourished Orientation/consciousness: patient oriented x3 Limitations: no limitations HENMT Head: Yes normal to inspection and Yes atraumatic Ears: hearing grossly normal bilaterally and external ears normal General nose exam: Normal external nose present, no nasal discharge noted and no epistaxis Face and sinus: Yes normal facial exam, No abrasion and No laceration Mouth: Normal oral and palatal mucosa present, no drooling and no muffled voice Teeth and gingiva: poor dentition Teeth image: 2 1. erythema, swelling Eyes General: appearance normal, both eyes and all related structures Periorbital: periorbital findings normal Eyelids: Yes eyelids normal Conjunctivae: conjunctivae normal Pupils: Equal, round and reactive pupils present EOM: EOMs intact bilaterally Neck Neck: Yes normal visual inspection, Yes full ROM and Yes no lymphadenopathy Chest Chest palpation & inspection: normal inspection of the chest Resp Effort & Inspection: normal respiratory effort and able to speak in complete sentences GI Inspection: Yes normal to inspection Neuro General: patient oriented x3, moves all extremities and CN's II-XI intact bilaterally Cranial nerves: Yes Equal, round and reactive pupils present Cognition (Neuro): normal cognition Extrem General: Yes normal to inspection, Yes full ROM and Yes capillary refill normal Psych Appearance: grossly normal Mental Status: mental status grossly normal Affect: normal affect Attitude: cooperative Thought process: Normal thought process present Thought content: Normal thought content present Insight: Good insight present (Psych) Medical Decision Making Medical Decision Making MDM Narrative: Patient is a 39 year old assigned male at with a history of substance use presenting to the emergency department today with right lower dental pain and infection. Patient's physical exam was as noted in the physical exam portion of this note. Patient's clinical presentation is most consistent with dental infection / potentially developing dental abscess. However, there was no evidence of something present to drain at this time. I explained my physical exam findings as well as all test results to the patient. I answered all questions asked by the patient. I stressed the importance of the patient taking his medication as directed (either prescribed or as the over the counter packaging recommends). I stressed the importance of the patient following up with his primary care provider and a dentist. I stressed the importance of the patient returning to the emergency department immediately if his symptoms were to worsen or if he were to develop any dizziness, shortness of breath, difficulty breathing, chest pain, blurry vision, loss of vision, nausea, vomiting, abdominal pain, fever, chills, back pain, or any other complaints. Patient verbalized agreement and understanding with this treatment plan and discharge. Differential Diagnosis Differential Diagnoses: The differential diagnosis associated with the presentation includes Right lower dental infection Right lower dental abscess Admission/Observation Consideration of admission/observation: Escalation of care including admission/observation considered Patient would have been admitted to the hospital had his clinical presentation warranted hospital admission. Prescription Management I considered prescription management with: Antibiotic (patient prescribed an antibiotic for right lower dental infection) Discharge Plan Discharge Clinical Impression: Dental abscess Patient Disposition: Home, Self-Care Instructions: Dental Abscess (ED) Additional Instructions: Take your antibiotic as prescribed. Follow up with your primary care provider. Return to the emergency department immediately if your symptoms worsen or if you develop any numbness, tingling, dizziness, shortness of breath, difficulty breathing, chest pain, blurry vision, loss of vision, nausea, vomiting, abdominal pain, fever, chills, back pain, or any other complaints. Call or visit any of the clinics below to establish with a dentist: [facility] [address] [place] [address] [facility] [address] [place] [address] [facility] [address] [facility], [address] [address] [place] [address] [facility] [address] [address] [facility] [address] [place] [address] [place] [address] [place] [address] Please see the information below about our Patient Portal. If you are not yet enrolled in the [facility] Patient Portal, you will receive an enrollment email invitation following your visit to any [facility] setting. You may also self-enroll in the Patient Portal by visiting our website: [email or web address] The following information is required to access the Patient Portal: - Your [facility] Medical Record Number - Your personal home email address (must match what is in your electronic medical record, Registration staff can assist with this) - Name - Date of Capabilities of the Patient Portal: - Message some providers - View upcoming appointments - Access your health summary, medical history, and visit history - View current conditions and allergies - View procedure and lab results - View your medications, including guidelines, side effects, and precautions - Complete pre-appointment questionnaires requested by your provider - Ready summary reports of your office visits and procedures To access the Patient Portal Mobile Carlene, follow these directions: - Search [employer] in the Carlene Store or [employer] Store - Download the Carlene - Search for [facility] - Enter your login/password Prescriptions: New amoxicillin-pot clavulanate 875-125 mg tablet 1 tab PO BID 10 Days Qty: 20 0RF No Action albuterol sulfate 90 mcg/actuation HFA aerosol inhaler 1 inh inhalation QID PRN (Reason: shortness of breath or wheezing) Qty: 8.5 0RF ibuprofen 600 mg tablet 600 mg PO TID PRN (Reason: fever or pain) Qty: 20 0RF nicotine (polacrilex) 4 mg gum 4 mg PO Q2H PRN (Reason: Nicotine Cravings) methadone 10 mg/mL Concentrate 100 mg PO DAILY doxycycline hyclate 100 mg tablet 100 mg PO BID 7 Days Qty: 14 0RF Referrals: [facility] Family Medicine [Provider Group] (Call to establish and follow up with a primary care provider. If you already have a primary care provider, please follow up with them.) [facility] Primary Care, [facility] [Provider Group] (Call to establish and follow up with a primary care provider. If you already have a primary care provider, please follow up with them.) [facility] [Provider Group] (Call to establish and follow up with a primary care provider. If you already have a primary care provider, please follow up with them.) [facility] Primary Care[facility] [Provider Group] (Call to establish and follow up with a primary care provider. If you already have a primary care provider, please follow up with them.) Print Language: Turkmen
[2025-01-21 13:13] VITALS: BP 153/69; PULSE 85; RESP 16; TEMP 36.8; O2SAT 98
--- OUTSIDE RECORDS SUMMARY | 2025-01-21 13:19 | XMS_ITS | Clinical Summary ---
Author Organization [address] [facility] Address [address] [place] [address] Phone Care Team Providers Care Energy Project Manager Name Role Phone Coty Wills MD Primary Care Provider Social History Tobacco Use Types Packs/Day Years Used Date Smoking Tobacco: Never Assessed Sex and Gender Information Value Date Recorded Sex Assigned at Not on file Legal Sex Male 3:41 PM EST Gender Identity Not on file Sexual Orientation Not on file Plan of Treatment Health Maintenance Due Date Last Done Comments DTaP,Tdap,and Td Vaccines (1 - Tdap) 2004 Hepatitis B Vaccines (1 of 3 - 19+ 3-dose series) 2004 COVID-19 Vaccine ( - 2023-2 5 season) 2024 Influenza Vaccine (#1) 2024 Cholesterol Screening (Lipid Panel) 09/21/2024 Depression Screening 09/21/2024 HIV Screening 09/21/2024 Hepatitis C Screening 09/21/2024 Social Influencers of Health Screening 09/21/2024 HIB Vaccines Aged Out No longer eligi ble based on patient's age to complete this topic HPV Vaccines Aged Out No longer eligi ble based on patient's age to complete this topic Hepatitis A Vaccines Aged Out No long er eligible based on patient's age to complete this topic IPV Vaccines Aged Out No longer eligi ble based on patient's age to complete this topic MMR Vaccines Aged Out No longer eligi ble based on patient's age to complete this topic Meningococcal ACWY Vaccine Aged Out N o longer eligible based on patient's age to complete this topic Meningococcal B Vacine Aged Out No lo nger eligible based on patient's age to complete this topic Pneumococcal Vaccine: Pediat rics (0 to 5 Years) and At-Risk Patients (6 to 64 Years) Aged Out No longer eligible b ased on patient's age to complete this topic RSV Immunization Patients Un ambrose 20 months Aged Out No longer eligible b ased on patient's age to complete this topic Varicella Vaccines Aged Out No longer eligible based on patient's age to complete this topic Care Teams Energy Project Manager Relationship Specialty Start Date End Date Coty Wills MD [facility] [place] [address] PCP - General Internal Medicine 11/28/24
--- OUTSIDE RECORDS SUMMARY | 2025-01-21 13:19 | XMS_ITS | Clinical Summary ---
Author Organization [employer] Address [address] [facility] 7t [place] [address] Care Team Providers Care Skiff Operator Name Role Phone Unavailable Primary Care Provider Unavailabl e Immunizations Name Administration Dates Next Due Moderna Covid-19 Vaccine 6+ Bivalent 11/13/2022 Social History Tobacco Use Types Packs/Day Years Used Date Smoking Tobacco: Never Assessed Sex and Gender Information Value Date Recorded Sex Assigned at Not on file Legal Sex Male 11:54 AM EST Gender Identity Not on file Sexual Orientation Not on file Plan of Treatment Health Maintenance Due Date Last Done Comments Depression Screening 1985 HIV Screening 1985 Lipid Panel 1985 SDOH Screening 1985 Alcohol/Substance Use Screening 1997 Tobacco Screening 1997 Family Planning (PISQ) 2000 Hepatitis C Screening 2003 DTaP/Tdap/Td Vaccines (1 - Tdap) 2004 Hepatitis B Vaccines (1 of 3 - 19+ 3-dose series) 2004 COVID-19 Vaccine (2 - 2023-2 5 season) 2024 11/13/2022 Influenza Vaccine (#1) 2024 Zoster Vaccines (1 of 2) 2035 RSV Patients and Pa tients Aged 60 years or older (1 - 1-dose 75+ series) 2060 HIB Vaccines Aged Out No longer eligi [...] patient's age to complete this topic Meningococcal Vaccine Aged Out No sanaz shabnam eligible based on patient's age to complete this topic Pneumococcal Vaccine: Pediat rics (0 to 5 Years) and At-Risk Patients (6 to 49) Years) Aged Out No longer elig ible based on patient's age to complete this topic RSV under 20 months Aged Out No longe r eligible based on patient's age to complete this topic Rotavirus Vaccines Aged Out No longer eligible based on patient's age to complete this topic Insurance [facility]
== END 2025-01-21 13:15 | disposition home or self-care (01) ==
PROVIDERS: Emergency Provider Emergency Medicine
DX: K04.7 Periapical abscess without sinus (principal); K08.89 Other specified disorders of teeth and supporting structures; F17.210 Nicotine dependence, cigarettes, uncomplicated
CPT/HCPCS: 99282; 99283

== ENCOUNTER 2025-09-14 11:57 | Outpatient (REF) | payer MEDICAID, SELFPAY ==
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
[2025-09-14 13:38] LABS: Alanine Aminotransferase 18 U/L (0-40); Albumin Level 4.6 g/dL (3.5-5.0); Alkaline Phosphatase 119 U/L (39-117); Aspartate Amino Transferase 24 U/L (5-37); Total Protein 7.3 g/dL (6.5-8.0)
--- OUTSIDE RECORDS SUMMARY | 2025-09-14 14:57 | XMS_ITS | Clinical Summary ---
Author Organization [facility] Address [address] [address] Phone Care Team Providers Care Coordinate Measuring Machine Programmer Name Role Phone Pcp, Unknown Primary Care Provider Unavailabl e Allergies No known active allergies Medications bacitracin 500 unit/gram ointment Apply topically 2 (two) times a day. 15 g Active Social History Tobacco Use Types Packs/Day Years Used Date Smoking Tobacco: Never Assessed Education Answer Date Recorded Are you interested in more education? Not on millie e 03/03/2025 Are you concerned about learning? Not on file 03/03/2025 No 03/03/2025 No 03/03/2025 Digital Access Answer Date Recorded No 03/03/2025 No 03/03/2025 Reliable internet access at home? Not on file 03/03/2025 Device with a working camera? Not on file Intimate Partner Violence Answer Date R ecorded Are you denied basic needs s uch as food, clothing, or medical care? No 03/03/2025 In the past 12 months have y ou been in a relationship with a person who hurts, threatens, or tries to control you? No 03/03/2025 Are you denied basic needs s uch as food, clothing, or medical care? No 03/03/2025 In the past 12 months have y ou been in a relationship with a person who hurts, threatens, or tries to control you? No 03/03/2025 Sex and Gender Information Value Date Recorded Sex Assigned at Male 03/03/2025 5:17 PM EDT Legal Sex Male 4:20 PM EDT Gender Identity Male 03/03/2025 5:17 PM EDT Sexual Orientation Straight 03/03/2025 5: 17 PM EDT Last Filed Vital Signs Vital Sign Reading Time Taken Comments Blood Pressure 126/90 03/03/2025 7:22 PM EDT Pulse 78 03/03/2025 7:22 PM EDT Temperature 35.7 C (96.3 F) 03/03/2025 6:30 PM EDT Respiratory Rate 16 03/03/2025 7:22 PM EDT Oxygen Saturation 100% 03/03/2025 7:22 PM EDT Inhaled Oxygen Concentration - - Weight 74.8 kg (165 lb) 03/03/2025 4:28 PM EDT Height 175.3 cm (5' 9 ) 03/03/2025 4:28 PM EDT Body Mass Index 24.37 03/03/2025 4:28 PM EDT Plan of Treatment Health Maintenance Due Date Last Done Comments Adult Td,Tdap Booster 1985 LIPID PANEL 1985 DEPRESSION SCREENING 1997 SMOKING Hx and SMOKELESS TOB ACCO SCREENING 1998 HEPATITIS C SCREENING 2003 HIV ONE-TIME SCREENING (18-6 5 YEARS) 2003 INFLUENZA VACCINE (#1) 2025 COVID-19 VACCINE ( - 2024-2 6 season) 2025 HEPATITIS A VACCINES Aged Out No long er eligible based on patient's age to complete this topic HIB VACCINES Aged Out No longer eligi ble based on patient's age to complete this topic MENINGOCOCCAL VACCINES (ACWY) Aged Out No longer eligible based on patient's age to complete this topic MENINGOCOCCAL VACCINES (B) Aged Out N o longer eligible based on patient's age to complete this topic PNEUMOCOCCAL VACCINES (0-49 years) Aged Out No longer eligible based on patient's age to complete this topic Medical Devices Not on [place] [id number] [facility] TO[facility]HER M[employer] FABRIZIO MAJO, ANKITA [id number] [facility] [place] [id number] [facility] [employer] MCO FABRIZIO MAJOANKITA SOARES [id number] [facility] [place] [id number] [facility] [employer] MCO JONGColton KASPER ANKITA [id number] [facility] [employer] M[employer] Care Teams Coordinate Measuring Machine Programmer Relationship Specialty Start Date End Date Pcp, Unknown PCP - General 03/03/25 Additional Source Comments The information contained in this document represents components of the legal health record. It is not the complete legal health record.[facility]
--- OUTSIDE RECORDS SUMMARY | 2025-09-14 14:57 | XMS_ITS | Encounter Summary ---
Author Organization [employer] Address [address] [place] [address] 7 [place] [address] Care Team Providers Care Grape Grower Name Role Phone Unavailable Primary Care Provider Unavailabl e Reason for Visit * Reason Onset Date Comments Med Refill 09/14/2025 Encounter Details Date Type Department Care Team (Late st Contact Info) Description 09/14/[address] [facility] [address] [place] [phone] Hawa Herron MD [address] [place] [phone] Opioid dependence, uncomplicated (CMS/HCC) (HCC) (Primary Dx) Social History Tobacco Use Types Packs/Day Years Used Date Smoking Tobacco: Never Assessed Sex and Gender Information Value Date Recorded Sex Assigned at Male 08/07/2025 11:44 AM EDT Legal Sex Male 11:54 AM EST Gender Identity Male 08/07/2025 11:44 AM EDT Sexual Orientation Straight 08/07/2025 11 :44 AM EDT documented as of this encounter Plan of Treatment Upcoming Encounters Date Type Department Care Team (Late st Contact Info) Description 09/21/2025 2:00 PM EST Office Visit [facility] [address] [place] [phone] Hawa Herron MD [address] [place] [phone] 09/28/2025 2:00 PM EST Office Visit [facility] [address] [place] [phone] Hawa Herron MD [address] [place] [phone] documented as of this encounter Goals Goal Patient Goal Type Associated Problems Recent Progress Patient-Stated? Author Return to [facility] for certificate program. 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 RN documented as of this encounter Visit Diagnoses Diagnosis Opioid dependence, uncomplicated (CMS/HCC) (HCC)- Primary documented in this encounter
--- OUTSIDE RECORDS SUMMARY | 2025-09-14 14:57 | XMS_ITS | Encounter Summary ---
Author Organization [employer] Address [address] [facility] 7t [place] [address] Care Team Providers Care Story Teller Name Role Phone Unavailable Primary Care Provider Unavailabl e Reason for Visit * Reason Comments [facility] Recovery Supports Encounter Details Date Type Department Care Team (Late st Contact Info) Description 09/14/2025 Patient Outreach [facility]INE [address] [place] [phone] Marlon Green Recovery Supports Social History Tobacco Use Types Packs/Day Years Used Date Smoking Tobacco: Never Assessed Sex and Gender Information Value Date Recorded Sex Assigned at Male 08/07/2025 11:44 AM EDT Legal Sex Male 11:54 AM EST Gender Identity Male 08/07/2025 11:44 AM EDT Sexual Orientation Straight 08/07/2025 11 :44 AM EDT documented as of this encounter Progress Notes * Marlon Green - 09/14/2025 2:50 PM EST I met with Chong today. Setting: in person at [facility] Recovery Wellness Goals worked on: Social Stability Action taken/next steps: Attended alcohol and drug free activity Additional comments: Marlon Green documented in this encounter Plan of Treatment Upcoming Encounters Date Type Department Care Team (Late st Contact Info) Description 09/21/2025 2:00 PM EST Office Visit [facility] [address] [place] [phone] Hawa Herron MD [address] [place] [phone] 09/28/2025 2:00 PM EST Office Visit [facility] [address] [place] [address] Hawa Herron MD [address] [place] [address] documented as of this encounter Goals Goal Patient Goal Type Associated Problems Recent Progress Patient-Stated? Author Return to [facility] for certificate program. 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 RN documented as of this encounter Visit Diagnoses Not on filedocumented in this encounter
--- OUTSIDE RECORDS SUMMARY | 2025-09-14 14:57 | XMS_ITS | Encounter Summary ---
Author Organization [employer] Address [address] [facility] 7t [place] [address] Care Team Providers Care Bilingual Operator Name Role Phone Unavailable Primary Care Provider Unavailabl e Encounter Details Date Type Department Care Team (Late st Contact Info) Description 09/14/2025 Orders Only [facility]INE [address] [place] [phone] Hawa Herron MD [address] [place] [phone] Social History Tobacco Use Types Packs/Day Years [...] Description 09/21/2025 2:00 PM EST Office Visit [facility] [address] [place] [phone] Hawa Herron MD [address] [place] [phone] 09/28/2025 2:00 PM EST Office Visit [facility] [address] [place] [phone] Hawa Herron MD [address] [place] [phone] documented as of this encounter Goals Goal Patient Goal Type Associated Problems Recent Progress Patient-Stated? Author Return to [facility] for certificate program. 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 RN documented as of this encounter Procedures Procedure Name Priority Date/Time Associated Diagnosis Comments HEPATIC FUNCTION PANEL Routine 09/14/2025 12:02 PM EST documented in this encounter Results * (ABNORMAL) Hepatic Function Panel (09/14/2025 12:02 PM EST) Bilirubin, Total 0.3 0.0 - 1.0 mg/dL [facility] Bilirubin, Direct 0.1 0.0 - 0.5 mg/dL [facility] Aspartate Amino Transferase 24 5 - 37 U/L [facility] Alanine Aminotransferase 18 0 - 40 U/L [facility] Total Protein 7.3 6.5 - 8.0 g/dL [facility] Albumin Level 4.6 3.5 - 5.0 g/dL [facility] Alkaline Phosphatase 119(H) 39 - 117 U/L [facility] 09/14/2025 12:0 2 PM EST 09/14/2025 1:05 PM EST Hawa Herron MD LAB BLOOD ORDERABLES Final R esult [facility] [address] [place] [phone] documented in this encounter Visit Diagnoses Not on filedocumented in this encounter
--- OUTSIDE RECORDS SUMMARY | 2025-09-14 14:57 | XMS_ITS | Encounter Summary ---
Author Organization [facility] Address [address] [place] [address] Care Team Providers Care Medical Office Rep Name Role Phone Coty Wills MD Primary Care Provider Encounter Details Date Type Department Care Team (Late st Contact Info) Description 09/20/2024 Lab Requisition [facility] Lab [address] [facility] [place] [address] Coty Wills MD [address] [place] [address] [phone] Encounter for screening for infections with a predominantly sexual mode of transmission Social History Tobacco Use Types Packs/Day Years Used Date Smoking Tobacco: Never Assessed Sex and Gender Information Value Date Recorded Sex Assigned at Not on file Legal Sex Male 3:41 PM EST Gender Identity Not on file Sexual Orientation Not on file documented as of this encounter Plan of Treatment Not on file documented as of this encounter Procedures Procedure Name Priority Date/Time Associated Diagnosis Comments CHLAMYDIA TRACHOMATIS AND NEISSERIA GONORRHOEAE PCR Routine 09/20/2024 11:58 AM EST Encounter for screening for infections with a predominantly sexual mode of transmission documented in this encounter Results * Chlamydia trachomatis and Neisseria gonorrhoeae molecular study (09/20/2024 11:58 AM EST) Neisseria gonorrhoeae PCR Negative Negative LAB MOLECULAR DIAGNOSTICS METHOD 09/21/2024 12:07 PM EST [facility] Chlamydia trachomatis PCR Negative Negative LAB MOLECULAR DIAGNOSTICS METHOD 09/21/2024 12:07 PM EST [facility] Urine Urethral structure / Unknown 09/20/2024 11:58 AM EST 09/20/2024 3:49 PM EST us Coty Wills MD LAB MICROBIOLOGY - GENE RAL ORDERABLES Final Result [facility] [address] [place] [address], documented in this encounter Visit Diagnoses Diagnosis Encounter for screening for infections with a predominantly sexual mode of transmission documented in this encounter Care Teams Medical Office Rep Relationship Specialty Start Date End Date Coty Wills MD [facility] [place] [address] PCP - General Internal Medicine 11/28/24 documented as of this encounter
--- OUTSIDE RECORDS SUMMARY | 2025-09-14 14:57 | XMS_ITS | Encounter Summary ---
Author Organization [employer] Address [address] [place] [address] 7t [place] [address] Care Team Providers Care Terrazzo Tile Maker Name Role Phone Unavailable Primary Care Provider Unavailabl e Encounter Details Date Type Department Care Team (Latest Contact Info) Description 09/14/2025 Travel Social History Tobacco Use Types Packs/Day Years [...] Description 09/21/2025 2:00 PM EST Office Visit [facility]INE [address] [place] [phone] Hawa Herron MD [address] [place] [phone] 09/28/2025 2:00 PM EST Office Visit [facility] [address] [place] [phone] Hawa Herron MD [address] [place] [phone] documented as of this encounter Goals Goal Patient Goal Type Associated Problems Recent Progress Patient-Stated? Author Return to [facility] for certificate program. 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, JENN documented as of this encounter Visit Diagnoses Not on filedocumented in this encounter
--- OUTSIDE RECORDS SUMMARY | 2025-09-14 14:57 | XMS_ITS | Clinical Summary ---
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 60 capsule 3 025 2025 Active naloxone (Narcan) 4 mg/0.1 mL nasal sprayIndications :Opioid dependence, uncomplicated (CMS/HCC) (HCC) Administer 1 spray (4 mg) into affected nostril(s) if needed for opioid reversal. May repeat every 2-3 minutes if needed, alternating nostrils, until medical assistance becomes available. 2 each 025 2025 Active lidocaine (Lidoderm) 5 % patchIndications :Opioid dependence, uncomplicated (CMS/HCC) (HCC) Apply 1 patch topically Once per day. Remove & discard patch within 12 hours or as directed by . 30 patch 2 025 2025 Active Blood Pressure kitIndications:O pioid dependence, uncomplicated (CMS/HCC) (HCC) 1 each 2 times daily. 1 kit 025 2025 Active nicotine polacrilex (Commit) 4 MG lozenge Dissolve 1 lozenge (4 mg) in the mouth every 2 (two) hours if needed for smoking cessation. 100 lozenge 2 Active tiZANidine (Zanaflex) 2 MG tabletIndication s:Chronic right-sided low back pain with right-sided sciatica Take 1 tablet (2 mg) by mouth every 6 (six) hours if needed for muscle spasms for up to 10 days. 30 tablet Active gabapentin (Neurontin) 300 MG capsuleIndicatio ns:Chronic right-sided low back pain with right-sided sciatica Take 1 capsule (300 mg) by mouth 3 times daily. 90 capsule 1 025 2024 Active buprenorphine-na loxone (Suboxone) 8-2 MG SL tabletIndication s:Opioid dependence, uncomplicated (CMS/HCC) (HCC) Place 1 tablet under the tongue 3 times daily for 7 days. 21 tablet 025 2024 Active tiZANidine (Zanaflex) 2 MG tabletIndication s:Opioid dependence, uncomplicated (CMS/HCC) (HCC) Take 1 tablet (2 mg) by mouth every 6 (six) hours if needed for muscle spasms for up to 10 days. 30 tablet 025 2024 Discontinued(R eorder (will not trigger notification to Pharmacy)) gabapentin (Neurontin) 400 MG capsuleIndicatio ns:Opioid dependence, uncomplicated (CMS/HCC) (HCC) Take 1 capsule (400 mg) by mouth 3 times daily. 90 capsule 1 025 2024 Discontinued Buprenorphine HCl-Naloxone HCl (Suboxone) 8-2 MG SL filmIndications: Opioid dependence, uncomplicated (CMS/HCC) (HCC) Place 1 Film under the tongue 3 times daily for 7 days. Do not start before August 16, 2025. 21 Film 025 2024 Discontinued(R eorder (will not trigger notification to Pharmacy)) Buprenorphine HCl-Naloxone HCl (Suboxone) 8-2 MG SL filmIndications: Opioid dependence, uncomplicated (CMS/HCC) (HCC) Place 1 Film under the tongue 3 times daily for 5 days. 15 Film 025 2024 Discontinued(R eorder (will not trigger notification to Pharmacy)) Buprenorphine HCl-Naloxone HCl (Suboxone) 8-2 MG SL filmIndications: Opioid dependence, uncomplicated (CMS/HCC) (HCC) Place 1 Film under the tongue 3 times daily for 7 days. Do not start before August 23, 2025. 21 Film 025 2024 Discontinued(E xpired) Active Problems Problem Noted Date Diagnosed Date Opioid dependence, uncomplicated (CMS/HCC) 08/08 Mild intermittent asthma without complication History of hepatitis C virus infection Depression 08/08/2025 Anxiety 08/08/2025 PTSD (post-traumatic stress disorder) 08/08/2025 OCD (obsessive compulsive disorder) 08/08/2025 ADHD 08/08/2025 Chronic right-sided low back pain with right-rhonda ed sciatica 08/08/2025 Tobacco dependence 08/08/2025 Encounters Date Type Department Care Team Description 09/14/2025 11:45 AM EST Clinical Support [facility] [address] [place] [address] Erasmo Rowley, RN Opioid dependence, uncomplicated (CMS/HCC) (HCC) (Primary Dx) 09/14/2025 Patient Outreach [facility] [address] [place] [phone] Marlon Green Recovery Supports 09/14/2025 Orders Only [facility] [address] [place] [address] [phone] Hawa Herron MD 09/14/2025 Travel 09/14/2025 Refill [facility] [address] [place] [phone] Hawa Herron MD Opioid dependence, uncomplicated (CMS/HCC) (HCC) (Primary Dx) 08/29/2025 Population Health Risk Score [facility] (C3) Department [address] [phone] Provider, Population Health Generic 08/28/2025 Telephone [facility] [address] [place] [phone] Lucretia Whaley, JENN 08/24/2025 Telephone [facility] [address] [place] [address] Renny Vo MD 08/22/2025 Patient Outreach [facility] [address] [place] [phone] Marlon Green Recovery Supports 08/21/2025 Refill [facility] [address] [place] [address] [phone] Lucretia Whaley RN Opioid dependence, uncomplicated (CMS/HCC) ([facility]) 08/18/2025 2:15 PM EDT Office Visit [facility] [address] [place] [phone] Tae Mercer MD Opioid dependence, uncomplicated ([facility]/HCC) ([facility]) (Primary Dx); Chronic right-sided low back pain with right-sided sciatica 08/18/2025 Refill [facility] [address] [place] [address] [phone] Lucretia Whaley RN Opioid dependence, uncomplicated (CMS/HCC) ([facility]) 08/18/2025 Travel 08/16/2025 Telephone [facility] [address] [place] [address] [phone] Tae Mercer MD 08/16/2025 Telephone [facility] [address] [place] [address] [phone] Lucretia Whaley RN 08/14/2025 Telephone [facility] [address] [place] [address] [phone] Renny Vo MD 08/11/2025 Refill [facility] [address] [place] [address] [phone] Lucretia Whaley RN Opioid dependence, uncomplicated ([facility]/HCC) ([facility]) 08/08/2025 2:30 PM EDT Office Visit [facility] [address] [place] [address] [phone] Chong Alcantar MD Opioid dependence, uncomplicated ([facility]) (Primary Dx); Elevated blood pressure reading in office without diagnosis of hypertension; Chronic right-sided low back pain with right-sided sciatica; Tobacco dependence; Mild intermittent asthma without complication; History of hepatitis C virus infection; Depression, unspecified depression type; Anxiety; PTSD (post-traumatic stress disorder); Obsessive-compulsive disorder, unspecified type; Attention deficit hyperactivity disorder (ADHD), unspecified ADHD type 08/08/2025 1:00 PM EDT Office Visit [facility] [address] [place] [address] [phone] Lucretia Whaley RN Opioid dependence, uncomplicated ([facility]/HCC) 08/08/2025 Travel 08/01/2025 Telephone [facility] [address] [place] [address] [phone] Twyla Gonsalez RN from Last 3 Months Immunizations Immunization Administration Dates Next Due Moderna Covid-19 Vaccine 6+ Bivalent 11/13/2022 Social History Tobacco Use Types Packs/Day Years Used Date Smoking Tobacco: Never Assessed Sex and Gender Information Value Date Recorded Sex Assigned at Male 08/07/2025 11:44 AM EDT Legal Sex Male 11:54 AM EST Gender Identity Male 08/07/2025 11:44 AM EDT Sexual Orientation Straight 08/07/2025 11 :44 AM EDT Last Filed Vital Signs Vital Sign Reading Time Taken Comments Blood Pressure 145/85 08/08/2025 3:31 PM EDT Pulse 88 08/08/2025 1:35 PM EDT Temperature 36.2 C (97.2 F) 08/08/2025 1:35 PM EDT Respiratory Rate 20 08/08/2025 1:35 PM EDT Oxygen Saturation - - Inhaled Oxygen Concentration - - Weight - - Height - - Body Mass Index - - Plan of Treatment Upcoming Encounters Date Type Department Care Team (Late st Contact Info) Description 09/21/2025 2:00 PM EST Office Visit [facility] [address] [place] [address] [phone] Hawa Herron MD [address] [place] [phone] 09/28/2025 2:00 PM EST Office Visit [facility] [address] [place] [address] [phone] Hawa Herron MD [address] [place] [address] [phone] Health Maintenance Due Date Last Done Comments Depression Screening 1985 HIV Screening 1985 Lipid Panel 1985 SDOH Screening 1985 Disability Screening 1985 Alcohol/Substance Use Screening 1997 Tobacco Screening 1997 Family Planning (PISQ) 2000 HPV Vaccines (1 - Male 3-dose series) 2000 Hepatitis B Vaccines (1 of 3 - 19+ 3-dose series) 2004 Pneumococcal Vaccine: Pediatrics (0 to 5 Years) and At-Risk Patients (6 to 49) Years (1 of 2 - PCV) 2004 Hepatitis A Vaccines (2 of 2 - Risk 2-dose series) 09/29/2019 03/29/2019 COVID-19 Vaccine ( - season) 2025 11/13/2022, 01/28/2022, 07/17/2021, Additional history exists Influenza Vaccine (#1) 2025 DTaP/Tdap/Td Vaccines (2 - Td or Tdap) 06/26/2035 06/26/2025 Zoster Vaccines (1 of 2) 2035 RSV Patients and Patients Aged 60 years or older (1 - 1-dose 75+ series) 2060 HIB Vaccines Aged Out No longer eligi ble based on patient's age to complete this topic IPV Vaccines Aged Out No longer eligi ble based on patient's age to complete this topic Meningococcal B Vaccine Aged Out No l onger eligible based on patient's age to complete this topic Meningococcal Vaccine Aged Out No sanaz shabnam eligible based on patient's age to complete this topic RSV under 20 months Aged Out No longe r eligible based on patient's age to complete this topic Rotavirus Vaccines Aged Out No longer eligible based on patient's age to complete this topic Goals Goal Patient Goal Type Associated Problems Recent Progress Patient-Stated? Author Return to [facility] for certificate program. 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 Procedure Name Priority Date/Time Associated Diagnosis Comments HEPATIC FUNCTION PANEL Routine 09/14/2025 12:02 PM EST POCT HUANG-14 URINE DRUG SCREEN Routine 08/18/2025 2:38 PM EDT Opioid dependence, uncomplicated (CMS/HCC) (HCC) POCT HUANG-14 URINE DRUG SCREEN Routine 08/08/2025 4:17 PM EDT Opioid dependence, uncomplicated (CMS/HCC) from Last 3 Months Results * (ABNORMAL) Hepatic Function Panel (09/14/2025 12:02 PM EST) Bilirubin, Total 0.3 0.0 - 1.0 mg/dL [facility] Bilirubin, Direct 0.1 0.0 - 0.5 mg/dL [facility] Aspartate Amino Transferase 24 5 - 37 U/L [facility] Alanine Aminotransferase 18 0 - 40 U/L [facility] Total Protein 7.3 6.5 - 8.0 g/dL [facility] Albumin Level 4.6 3.5 - 5.0 g/dL [facility] Alkaline Phosphatase 119(H) 39 - 117 U/L [facility] 09/14/2025 12:0 2 PM EST 09/14/2025 1:05 PM EST Hawa Herron MD LAB BLOOD ORDERABLES Final R esult [facility] [address] [place] [address] [phone] * (ABNORMAL) POCT HUANG-14 Urine Drug Screen (08/18/2025 2:38 PM EDT) Only the most recent of2 resultswithin the time period is included. THC Negative Negative Cocaine Screen, Urine Negative Negative Opiate Screen, Urine Negative Negative Methamphetamine Screen Urine Negative Negative Amphetamine Screen, Urine Positive(A) Negative Benzodiazepines Screen, Urine Negative Negative Barbiturate Screen, Urine Negative Negative Methadone Screen, Urine Negative Negative Buprenophine Screen, Urine Positive(A) Negative TCA, Urine Negative Negative MDMA Urine Negative Negative ng/mL Oxycodone Screen, Urine Negative Negative Phencyclidine (PCP), Urine Negative Negative Fentanyl, Urine Negative Negative Urine Urine specimen obtained by clean catch procedure / Unknown 08/18/2025 2:38 PM EDT Tae Mercer MD POINT OF CARE TEST ENTER/EDIT OR DERABLES Final Result from Last 3 Months Insurance [facility] C3
--- OUTSIDE RECORDS SUMMARY | 2025-09-14 14:57 | XMS_ITS | Clinical Summary ---
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 Role Phone Coty Wills MD [...] of 3 - 19+ 3-dose series) 2004 HPV Vaccines (1 - 3-dose SCD M series) 2012 Cholesterol Screening (Lipid Panel) 09/21/2024 HIV Screening 09/21/2024 Hepatitis C Screening 09/21/2024 Social Influencers of Health Screening 09/21/2024 Depression Screening 11/09/2024 COVID-19 Vaccine (1 - 2023-2 5 season) 2025 Influenza Vaccine (#1) 2025 RSV Immunization Adult Patie nts (1 - 1-dose 75+ series) 2060 HIB [...] 5 Years) and At-Risk Patients (6 to 49 Years) Aged Out No longer eligible b ased on patient's age to complete this topic RSV Immunization Patients Un ambrose 20 months Aged Out No longer eligible b ased on patient's age to complete this topic Varicella Vaccines Aged Out No longer eligible based on patient's age to complete this topic Care Teams Concierge Manager Relationship Specialty Start Date End Date Coty Wills MD [address] [place] [phone] PCP - General Internal Medicine 11/28/24
[2025-09-15 08:14] LABS: HBS Num1 86.30 mIU/mL (0-7.99); HBc Num1 0.15 S/CO (0.00-0.79); HBsAGNum1 0.72 S/CO (0.00-0.99); HIV Num 1 0.06 S/CO (0.00-0.99); Hepatitis B Surface Antigen Negative (Negative); Syphilis Screen Nonreactive (Nonreactive); ~HepC Num1 2.97 S/CO (0.00-0.79); ~Hepatitis B Surface Antibody REACTIVE (Nonreactive); ~Hepatitis C Antibody Reactive (Nonreactive)
[2025-09-15 08:15] LABS: ~Hepatitis A Antibody IgG 6.48 S/CO (0.00-0.99)
[2025-09-16 14:59] LABS: HCV Log PCR <1.18 NOT DETECTED Log IU/mL (NOT DETECTED); HepC Viral Load <15 NOT DETECTED IU/mL (NOT DETECTED)
[2025-09-17 18:59] LABS: TS Negative Control Passed; TS Panel A 0; TS Panel B 0; TS Positive Control Passed; TSpotTB Negative (Negative)
== END 2025-09-14 11:58 | disposition home or self-care (01) ==
LOC: HO.HHCL 11:57
PROVIDERS: PCP Family Medicine; Visit Provider Family Medicine
DX: Z11.4 Encounter for screening for human immunodeficiency virus [HIV] (principal); Z11.1 Encounter for screening for respiratory tuberculosis; Z11.59 Encounter for screening for other viral diseases; Z11.3 Encounter for screening for infections with a predominantly sexual mode of transmission; F11.20 Opioid dependence, uncomplicated
CPT/HCPCS: 36415; 80076; 86481; 86704; 86706; 86708; 86780; 86803; 87340; 87389; 87522

== ENCOUNTER 2025-10-21 10:56 | Emergency (ER) | payer MEDICAID, SELFPAY ==
--- NOTE | ~2025-10-21 | MR_ITS ---
CLINICAL HISTORY: back pain, hx of IVDA --- rule out epidural abscess osteo. Whole spine scan - Abscess protocol Exam: MRI of the thoracic, including gadolinium enhanced imaging. Comparison: None. Findings: MRI thoracic spine: Thoracic vertebral body heights, alignment, and signal intensities appear maintained. There is mild disc desiccation more significant T4-T8 with mild disc bulges at these levels (17; 9). Thoracic vertebral signal intensities are well-maintained. There is mild diffuse disc desiccation. No abnormal T2 hyperintensity or enhancement within intervertebral disc or endplates to suggest discitis/osteomyelitis. Axial images reveal no abnormal epidural or paraspinal soft tissue with no evidence of epidural collection or abscess or paraspinal collection or abscess. No significant compromise of the thecal sac or spinal canal. Impression: 1. No MR evidence of epidural or paraspinal abscess or collection. No definable compromise of the thecal sac or spinal canal.. This document has been electronically signed by: Trevor Lei MD on 10/21/2025 19:48:54
--- NOTE | ~2025-10-21 | XR_ITS ---
CLINICAL HISTORY: chronic pain mid low back x 8 months 3 views lumbar spine Comparison: None Findings: No fractures or dislocations. Normal vertebral body alignment. Intervertebral disc heights are well-maintained. There is mild diffuse vertebral body spurring L2-L5, most prominent at L3-4 level.. Impression: 1. Mild lumbar degenerative changes as described above. This document has been electronically signed by: Trevor Lei MD on 10/21/2025 13:08:24
--- NOTE | ~2025-10-21 | MR_ITS ---
CLINICAL HISTORY: back pain, hx of IVDA --- rule out epidural abscess/osteo. Whole spine scan using abscess protocol Exam: MRI of the lumbar spine, including gadolinium enhanced imaging. Comparison: None. Findings: Lumbar vertebral body heights and alignment are well-maintained. There is very minimal Modic type 1 endplate signal abnormality involving the superior endplate of L4. Remaining vertebral signal intensities are well-maintained. Intervertebral disc heights are generally maintained. There is slight disc desiccation L3-L5. Conus medullaris terminates at L1 level. Axial images are limited by the absence of T2 weighted axial images. There is no evidence of significant focal disc herniation or significant spinal stenoses or compromise of the thecal sac or spinal canal. There is no evidence of discal enhancement to suggest discitis or discitis/osteomyelitis. No definable rim enhancing paraspinal collections or epidural collections are appreciated. There is mild enhancement surrounding bilateral facet arthropathy at L4-5 (23; 33), likely related to reactive changes related to facet arthropathy. Impression: 1. Facet arthropathy with some mild surrounding enhancement bilaterally at L4-5 level. 2. Otherwise, no evidence of epidural collection or lesion. No evidence of paraspinal collection or lesion. No MR evidence of discitis/osteomyelitis. This document has been electronically signed by: Trevor Lei MD on 10/21/2025 19:36:31
--- NOTE | ~2025-10-21 | MR_ITS ---
CLINICAL HISTORY: back pain, hx of IVDA ---rule out epidural abscess/osteo. Whole spine scan - abscess protocol Exam: MRI of the cervical spine, including gadolinium enhanced imaging. Comparison: None. Findings: Cervical vertebral body heights, alignment, and signal intensities are well-maintained. There is some disc desiccation, most significant at C5-6 level. Otherwise intervertebral disc heights are maintained. Signal intensity within the cervical cord appears well-maintained. Axial images reveal posterior disc-osteophyte complex at C5-6 which may result in some mild central canal stenoses (for example, 100; 23 and 24). Evaluation is limited by absent T2 weighted axial imaging. No other definable significant compromise of the thecal sac or spinal canal. Gadolinium enhanced imaging reveals no abnormal epidural or paraspinal soft tissue with no evidence of epidural paraspinal abscess or collection. No MR evidence of discitis/osteomyelitis. Impression: 1. Degenerative disc disease at C5-6 level may result in some mild central canal stenoses. 2. Otherwise, no abnormal epidural or paraspinal collections or evidence of discitis/osteomyelitis. This document has been electronically signed by: Trevor Lei MD on 10/21/2025 19:55:08
[2025-10-21 11:26] VITALS: BP 149/92; PULSE 74; RESP 16; TEMP 36.1; O2SAT 97; BMI 28.7
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
--- OUTSIDE RECORDS SUMMARY | 2025-10-21 12:27 | XMS_ITS | Clinical Summary ---
Author Organization [address] [facility] Address [address] [place] [address] Phone Care Team Providers Care Helper Marble Finisher Name Role Phone Coty Wills MD Primary [...] Depression Screening 11/09/2024 COVID-19 Vaccine (1 - 2024-2 6 season) 2025 Influenza Vaccine (#1) 2025 RSV [...] age to complete this topic Care Teams Helper Marble Finisher Relationship Specialty Start Date End Date Coty Wills MD [address] [place] [id number] PCP - General Internal Medicine 11/28/24
--- OUTSIDE RECORDS SUMMARY | 2025-10-21 12:27 | XMS_ITS | Clinical Summary ---
Author Organization [employer] Address [address] [facility] [address] [place] [address] Care Team Providers Care Data Migration Consultant Name Role Phone Unavailable Primary Care Provider Unavailabl e Allergies No known active allergies Medications docusate sodium (Colace) 100 MG capsuleIndicatio ns:Opioid dependence, uncomplicated (CMS/HCC) (HCC) Take 1 capsule (100 mg) by mouth if needed in the morning and at bedtime for constipation. 60 capsule 3 5 3:39 PM EST 025 2025 Active naloxone (Narcan) 4 mg/0.1 [...] up to 10 days. 30 tablet 025 Active gabapentin (Neurontin) 300 MG capsuleIndicatio ns:Chronic right-sided low back pain with right-sided sciatica Take 1 capsule (300 mg) by mouth 3 times daily. 90 capsule 1 5 3:39 PM EST 025 2024 Active buprenorphine-na loxone (Suboxone) 8-2 MG SL tabletIndication s:Opioid dependence, uncomplicated (CMS/HCC) (HCC) Place 1 tablet under the tongue 3 times daily. 21 tablet 025 Active buprenorphine-na loxone (Suboxone) 8-2 MG SL tabletIndication s:Opioid dependence, uncomplicated (CMS/HCC) (HCC) Place 1 tablet under the tongue 3 times daily for 7 days. 21 tablet 3:39 PM EST 025 2024 Discontinued(R eorder (will not trigger notification to Pharmacy)) Active Problems Problem Noted Date Diagnosed Date Opioid dependence, uncomplicated (CMS/HCC) 08/08 Mild intermittent asthma without complication History of hepatitis C virus infection Depression 08/08/2025 Anxiety 08/08/2025 PTSD (post-traumatic stress disorder) 08/08/2025 OCD (obsessive compulsive disorder) 08/08/2025 ADHD 08/08/2025 Chronic right-sided low back pain with right-rhonda ed sciatica 08/08/2025 Tobacco dependence 08/08/2025 Encounters Date Type Department Care Team Description 10/04/2025 Refill [facility] [address] [place] [address] Erasmo Rowley RN Opioid dependence, uncomplicated (CMS/HCC) (HCC) 09/22/2025 Telephone [facility] [address] [place] [address] Erasmo Rowley RN 09/15/2025 Refill [facility] [address] [place] [address] Hawa Herron MD Opioid dependence, uncomplicated (CMS/HCC) (HCC) 09/14/2025 11:45 AM EST Clinical Support [facility] [place] [address] Erasmo Rowley RN Opioid dependence, uncomplicated (CMS/HCC) (HCC) (Primary Dx) 09/14/2025 Patient Outreach [facility] [place] [address] Marlon Green Recovery Supports 09/14/2025 Orders Only [facility] [place] [address] Hawa Herron MD 09/14/2025 Travel 09/14/2025 Refill [facility] [place] [address] Hawa Herron MD Opioid dependence, uncomplicated (CMS/HCC) (HCC) (Primary Dx) 08/29/2025 Population Health Risk Score [facility] () Department [address] [place] [phone] Provider, Population Health Generic 08/28/2025 Telephone [facility] [place] [address] Lucretia Whaley, JENN 08/24/2025 Telephone [facility] [place] [address] Renny Vo MD 08/22/2025 Patient Outreach [facility] [place] [address] Marlon Green Recovery Supports 08/21/2025 Refill [facility] [place] [address] Lucretia Whaley, RN Opioid dependence, uncomplicated (CMS/HCC) (HCC) 08/18/2025 2:15 PM EDT Office Visit [facility] [place] [address] Tae Mercer MD Opioid dependence, uncomplicated (CMS/HCC) (HCC) (Primary Dx); Chronic right-sided low back pain with right-sided sciatica 08/18/2025 Refill [facility] [address] [place] [address] Lucretia Whaley, JENN Opioid dependence, uncomplicated ([facility]/HCC) ([facility]) 08/18/2025 Travel 08/16/2025 Telephone [facility] [address] [place] [phone] Tae Mercer MD 08/16/2025 Telephone [facility] [address] [place] [phone] Lucretia Whaley RN 08/14/[address] [address] Renny Vo MD 08/11/[address] [address] Lucretia Whaley RN Opioid dependence, uncomplicated ([facility]) ([facility]) 08/08/2025 2:30 PM EDT Office Visit [address] [address] Chong Alcantar MD Opioid dependence, uncomplicated ([facility]) (Primary Dx); Elevated blood pressure reading in office without diagnosis of hypertension; Chronic right-sided low back pain with right-sided sciatica; Tobacco dependence; Mild intermittent asthma without complication; History of hepatitis C virus infection; Depression, unspecified depression type; Anxiety; PTSD (post-traumatic stress disorder); Obsessive-compulsive disorder, unspecified type; Attention deficit hyperactivity disorder (ADHD), unspecified ADHD type 08/08/2025 1:00 PM EDT Office Visit [address] [address] Lucretia Whaley RN Opioid dependence, uncomplicated ([facility]/HCC) 08/08/2025 Travel 08/01/[address] [address] Twyla Gonsalez RN from Last 3 Months [...] Mass Index - - Plan of Treatment Health Maintenance Due Date Last Done Comments Depression Screening 1985 Lipid Panel 1985 SDOH Screening [...] 2-dose series) 09/29/2019 03/29/2019 COVID-19 Vaccine ( season) 2025 11/13/2022, 01/28/2022, 07/17/2021, Additional history exists Influenza Vaccine (#1) 2025 DTaP/Tdap/Td Vaccines (2 - Td or Tdap) 06/26/2035 06/26/2025 Zoster Vaccines (1 of 2) 2035 RSV Patients and Patients Aged 60 years or older (1 - 1-dose 75+ series) 2060 HIV Screening Completed 09/14/2025 HIB Vaccines Aged Out No longer eligi [...] Problems Recent Progress Patient-Stated? Author Return to [facility] for certificate program. 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 RN Procedures Procedure Name Priority Date/Time Associated Diagnosis Comments T-SPOT(R).TB Routine 09/14/2025 12:02 PM EST HEPATITIS C VIRAL RNA, QUANTITATIVE, REAL-TIME PCR Routine 09/14/2025 12:02 PM EST HEPATITIS B SURFACE ANTIGEN, EIA Routine 09/14/2025 12:02 PM EST HIV 1/2 ANTIGEN/ANTIBODY, FOURTH GENERATION W/RFL Routine 09/14/2025 12:02 PM EST HEPATITIS C AB W/REFL TO HCV RNA, QN, PCR Routine 09/14/2025 12:02 PM EST HEPATITIS B CORE AB TOTAL Routine 09/14/2025 12:02 PM EST HEPATITIS B SURFACE ANTIBODY, QUALITATIVE Routine 09/14/2025 12:02 PM EST HEPATITIS A ANTIBODY, TOTAL Routine 09/14/2025 12:02 PM EST SYPHILIS SCREEN Routine 09/14/2025 12:02 PM EST HEPATIC FUNCTION PANEL Routine 09/14/2025 12:02 PM EST POCT HUANG-14 URINE DRUG SCREEN Routine 08/18/2025 2:38 PM EDT Opioid dependence, uncomplicated (CMS/HCC) (HCC) POCT HUANG-14 URINE DRUG SCREEN Routine 08/08/2025 4:17 PM EDT Opioid dependence, uncomplicated (CMS/HCC) from Last 3 Months Results * Syphilis Screen (09/14/2025 12:02 PM EST) Syphilis Screen Nonreactive Nonreactive [facility] 09/14/2025 12:0 2 PM EST 09/14/2025 1:05 PM EST Hawa Herron MD LAB BLOOD ORDERABLES Final R esult [facility] [address] [place] [phone] * T-SPOT??.TB (09/14/2025 12:02 PM EST) T Spot TB Negative Negative [facility] Comment:A negative test resu lt does not exclude the possibilityof exposure to or infection with Mycobacteriumtuberculosis (M. tuberculosis). Patients with recentexposure to TB infected individuals exhibiting anegative T-SPOT.TB result should be considered forretesting within 6 weeks or if other relevant clinicalsymptoms indicate. Results from T-SPOT.TB testing mustbe used in conjunction with each individual'sepidemiological history, current medical status,and results of other diagnostic evaluations.The T-SPOT.TB test is qualitative and results arereported as positive, borderline, or negative, giventhat the test controls perform as expected. In linewith the Centers for Disease Control and Prevention's2010 recommendation to report quantitative measurementsalongside the qualitative result, the laboratoryprovides spot counts for informational purposes only.The T-SPOT.TB test should not be interpreted as aquantitative test. TS PANEL A 0 [facility] TS PANEL B 0 [facility] Negative Control Passed [facility] Positive Control Passed [facility] Comment:For additional infor sofi, please refer tohttp://education.[employer]faq/YRK535(This link is being provided for informational/educational purposes only.)THIS TEST WAS PERFORMED AT:[employer] [id number] [place] [address]SXFRPNRBERNARD BEGUM MD,PHD 09/14/2025 12:0 2 PM EST 09/14/2025 1:05 PM EST us Hawa Herron MD LAB BLOOD ORDERABLES Final R esult Performing Organization Address [facility] Co de Phone Number [facility] [address] [place] [phone] * Hepatitis C Viral RNA, Quantitative, Real-Time PCR (09/14/2025 12:02 PM EST) Pathologist [facility] Hepatitis C Viral Load <15 NOT DETECTED NOT DETECTED IU/mL [facility] HCV Log PCR <1.18 NOT DETECTED NOT DETECTED Log IU/mL [facility] Comment:For additional infor mation, please refer tohttp://education.[employer]faq/CCI05i7(This link is being provided for informational/educational purposes only.)THIS TEST WAS PERFORMED AT:[facility] [place] [id number] DOWNEY MD 09/14/2025 12:0 2 PM EST 09/15/2025 9:19 AM EST us Hawa Herron MD LAB BLOOD ORDERABLES Final R esult Performing Organization Address [facility] Co de Phone Number [facility] [address] [place] [phone] * (ABNORMAL) Hepatitis C Antibody with Reflex to HCV, RNA, Quantitative, Real- Time PCR (09/14/2025 12:02 PM EST) Pathologist [facility] Hepatitis C Antibody Reactive( A) Nonreactive [facility] Comment:Presumptive evidence of antibodies to HCV. 09/14/2025 12:0 2 PM EST 09/14/2025 1:05 PM EST us Hawa Herron MD LAB BLOOD ORDERABLES Final R esult Performing Organization Address City/[facility] Co de Phone Number [facility] [address] [place] [phone] * Hepatitis A Antibody, Total (09/14/2025 12:02 PM EST) Hepatitis A Antibody IgG REACTIVE Nonreactive [facility] Comment:The presence of IgG anti-HAV implies past HAV infection(recent or distant) or vaccination against HAV. 09/14/2025 12:0 2 PM EST 09/14/2025 1:05 PM EST us Hawa Herron MD LAB BLOOD ORDERABLES Final R esult Performing Organization Address [facility] Co de Phone Number [facility] [address] [place] [phone] * Hepatitis B surface antigen, EIA (09/14/2025 12:02 PM EST) Hepatitis B Surface Ag Negative Negative [facility] 09/14/2025 12:0 2 PM EST 09/14/2025 1:05 PM EST us Hawa Herron MD LAB BLOOD ORDERABLES Final R esult Performing Organization Address [facility] Co de Phone Number [facility] [address] [place] [phone] * Hepatitis B Core Antibody, Total (09/14/2025 12:02 PM EST) Hepatitis B Core Antibody Nonreactive Nonreactive [facility] 09/14/2025 12:0 2 PM EST 09/14/2025 1:05 PM EST us Hawa Herron MD LAB BLOOD ORDERABLES Final R esult Performing Organization Address [facility] Co de Phone Number [facility] [address] [place] [phone] * HIV-1/2 Antigen and Antibodies, Fourth Generation, with Reflexes (09/14/2025 12:02 PM EST) Pathologist [facility] HIV AB/AG Nonreactive Nonreactive [facility] Comment:HIV-1 p24 Ag and/or HIV-1/HIV-2 Ab not detected.A test result that is nonreactive does not exclude thepossibility of exposure to or infection with HIV-1 and/orHIV-2. Nonreactive results in this assay for individualswith prior exposure to HIV-1 and/or HIV-2 may be due toantigen and antibody levels that are below the limit ofdetection of this assay.The [employer] HIV Ag/Ab Combo assay result andsupplemental assay results should be interpreted inconjunction with the patient's clinical presentation,history and other laboratory results. If the results areinconsistent with clinical evidence, additional testing issuggested to confirm the result. 09/14/2025 12:0 2 PM EST 09/14/2025 1:05 PM EST Hawa Herron MD LAB BLOOD ORDERABLES Final R esult Performing Organization Address City/[facility]/ZIP Co de Phone Number [facility] [address] [place] [phone] * Hepatitis B Surface Antibody, Qualitative (09/14/2025 12:02 PM EST) Pathologist [facility] ~Hepatitis B Surface Antibody REACTIVE Nonreactive [facility] Comment:REACTIVE: > 11.99 mI U/mL 09/14/2025 12:0 2 PM EST 09/14/2025 1:05 PM EST Hawa Herron MD LAB BLOOD ORDERABLES Final R esult Performing Organization Address City/[facility]/ZIP Co de Phone Number [facility] [address] [place] [phone] * (ABNORMAL) Hepatic Function Panel (09/14/2025 12:02 PM EST) Bilirubin, Total 0.3 0.0 - 1.0 mg/dL [facility] Bilirubin, Direct 0.1 0.0 - 0.5 mg/dL [facility] Aspartate Amino Transferase 24 5 - 37 U/L [facility] Alanine Aminotransferase 18 0 - 40 U/L [facility] Total Protein 7.3 6.5 - 8.0 g/dL [facility] Albumin Level 4.6 3.5 - 5.0 g/dL [facility] Alkaline Phosphatase 119(H) 39 - 117 U/L [facility] 09/14/2025 12:0 2 PM EST 09/14/2025 1:05 PM EST Hawa Herron MD LAB BLOOD ORDERABLES Final R esult [facility] [address] [place] [phone] * (ABNORMAL) POCT HUANG-14 Urine Drug [...] Final Result from Last 3 Months Insurance [facility] [id number]
--- OUTSIDE RECORDS SUMMARY | 2025-10-21 12:27 | XMS_ITS | Encounter Summary ---
Author Organization [facility] Address [address] [place] [address] Care Team Providers Care Batch Freezer Name Role Phone Coty Wills MD Primary Care Provider Encounter Details Date Type Department Care Team (Late st Contact Info) Description 09/20/2024 Lab Requisition [facility] [address] [facility] [employer] [address] Coty Wills MD [address] [place] [address] [phone] Encounter for screening for infections with a [...] MOLECULAR DIAGNOSTICS METHOD 09/21/2024 12:07 PM EST [facility] Chlamydia trachomatis PCR Negative Negative LAB MOLECULAR DIAGNOSTICS METHOD 09/21/2024 12:07 PM EST [facility] Urine Urethral structure / Unknown 09/20/2024 11:58 AM EST 09/20/2024 3:49 PM EST us Coty Wills MD LAB MICROBIOLOGY - GENE RAL ORDERABLES Final Result [facility] [address] [place] [address], documented in this encounter Visit Diagnoses Diagnosis Encounter for screening for infections with a predominantly sexual mode of transmission documented in this encounter Care Teams Batch Freezer Relationship Specialty Start Date End Date Coty Wills MD [facility] [place] [address] PCP - General Internal Medicine 11/28/24 documented as of this encounter
--- OUTSIDE RECORDS SUMMARY | 2025-10-21 12:27 | XMS_ITS | Clinical Summary ---
Author Organization [facility] Address [address] [address] Phone Care Team Providers Care Medical Numerical Control Operator Name Role Phone Pcp, Unknown Primary Care [...] Not on [place] [id number] [facility] PLANS [facility] TOGETHER [employer] FABRIZIO MAJO, ANK[place] [address] [facility] [place] [address] [facility] TOGETHER [employer] FABRIZIO MAJOANKITA SOARES [id number] [facility] [place] [address] [facility] [employer]HER [employer] JONGColton [place] [id number] [facility] TOGETHER [employer] Care Teams Medical Numerical Control Operator Relationship Specialty Start Date End Date Pcp, Unknown PCP - General 03/03/25 Additional Source Comments The information contained in this document represents components of the legal health record. It is not the complete legal health record.[facility]
[2025-10-21] MEDS: vancomycin/NS 2,000 MG/500 ML PLAST..BAG 250 MG IV (14:41)
--- NOTE | 2025-10-21 15:19 | PC.NURSE ---
Pt moved into ED room, pt is a hard stick, antibiotics started after first set of cultures were collected. Pt remains A/Ox4. Pt to MRI this afternoon, form completed and sent to MRI, pt in agreement with current plan. Dilaudid to be given prior to pt going to MRI per provider. Awaiting lab and imaging results at this time.
--- NOTE | 2025-10-21 15:51 | PC.NURSE ---
PA approved pt to have a couple of crackers at this time, this RN brought crackers in as pt had not had any PO intake all day
[2025-10-21 16:21] VITALS: BP 131/82; PULSE 73; RESP 18; TEMP 36.6; O2SAT 98
--- NOTE | 2025-10-21 16:40 | PC.NURSE ---
This RN/ DATABASE CONSULTANT/ uncrater called and spoke with lab about missing lab work, according to the lab they have never received the labs, this RN specifically scanned and sent down labs, pt is a very hard stick, WILDLIFE FORENSIC GENETICIST/PA at bedside and placed and EJ, labs obtained, and hand walked down to the lab and physically handed off the phleb tech at this time.
[2025-10-21 16:47] LABS: Hematocrit 40.0 % (42.0-52.0); Hemoglobin 13.3 g/dl (14.0-18.0); Imm Gran Abs Auto 0.02 X10*3/uL (0.00-0.03); Imm Gran Pct Auto 0.4 % (0.0-0.4); Lymphocytes Absolute Auto 2.0 X10*3/uL (1.2-4.9); Mean Corpuscular HGB Conc 33.3 g/dl (31.0-36.0); Mean Corpuscular Hemoglobin 28.3 pg (27.0-33.0); Mean Corpuscular Volume 85.1 fL (80.0-98.0); NRBC Abs Auto 0.000 X10*3/uL (0.0-0.012); NRBC Pct Auto 0.0 /100WBC (0.0-0.2); Platelet Count 188 X10*3/uL (160-400); Red Blood Count 4.70 X10*6/uL (4.60-5.80); White Blood Count 5.3 X10*3/uL (4.8-10.8)
[2025-10-21 16:55] LABS: Alanine Aminotransferase 13 U/L (0-40); Albumin Level 3.8 g/dL (3.5-5.0); Alkaline Phosphatase 140 U/L (39-117); Anion Gap 11 (12-20); Aspartate Amino Transferase 14 U/L (5-37); Blood Urea Nitrogen 14 mg/dL (9-16); Calcium 8.1 mg/dL (8.4-10.2); Carbon Dioxide 25 mmol/L (22-29); Chloride 108 mmol/L (96-108); Creatinine Clr Calc Pharmacy 142.0; Estimated Glomerular Filt Rate > 60; Potassium 4.1 mmol/L (3.3-5.1); Sodium 140 mmol/L (135-145); Total Protein 6.1 g/dL (6.5-8.0)
[2025-10-21 16:58] VITALS: RESP 16
[2025-10-21 21:37] VITALS: BP 136/78; PULSE 65; RESP 16; TEMP 37.1; O2SAT 95
== END 2025-10-21 21:38 | disposition home or self-care (01) ==
PROVIDERS: Physician Assistant Medical; Emergency Provider Emergency Medicine
DX: M54.16 Radiculopathy, lumbar region (principal); M54.9 Dorsalgia, unspecified; G89.29 Other chronic pain; F17.200 Nicotine dependence, unspecified, uncomplicated; Z71.6 Tobacco abuse counseling; F11.20 Opioid dependence, uncomplicated
CPT/HCPCS: 36415; 72100; 72156; 72157; 72158; 80048; 80076; 83605; 85025; 85652; 86140; 87040; 96365; 96367; 96375; 99285; A9585; J0131; J0696; J1171; J1885; J3373

== ENCOUNTER → 2025-10-21 11:34 | Outpatient (BNV) | payer MEDICAID, SELFPAY | PROVIDERS: Emergency Provider Emergency Medicine; Visit Provider Radiology Diagnostic Radiology | DX: M54.6 Pain in thoracic spine (principal); M50.322 Other cervical disc degeneration at C5-C6 level; M47.816 Spondylosis without myelopathy or radiculopathy, lumbar region; M51.360 Other intervertebral disc degeneration, lumbar region with discogenic back pain only | CPT/HCPCS: 72100; 72156; 72157; 72158 ==